=== PATIENT | male | born 1950 | race Caucasian/White ===

== ENCOUNTER → 2017-03-25 10:02 | Outpatient (CLI) | payer MEDICARE, SELFPAY ==
[2017-03-25 10:44] LABS: Basophils # 0.1 K/mm3 (0-0.2); Basophils % 1.3 % (0.1-2.0); Eosinophils # 0.4 K/mm3 (0.0-0.4); Eosinophils % 5.5 % (0.1-12.0); Hematocrit 42.6 % (42.0-52.0); Hemoglobin 14.1 g/dL (14.1-18.0); Lymphocytes # 1.7 K/mm3 (0.7-4.5); Lymphocytes % 26.3 K/mm3 (10-50); Mean Corpuscular HGB Conc 33.2 g/dL (31.8-35.4); Mean Corpuscular Hemoglobin 30.7 pg (27.0-31.2); Mean Corpuscular Volume 92.6 fl (80-94); Monocytes # 0.5 K/mm3 (0.1-1.0); Monocytes % 7.1 % (1.7-9.3); Neutrophils # 3.9 K/mm3 (1.8-7.8); Neutrophils % 59.8 % (37.0-80.0); Platelet Count 165 K/mm3 (142-424); Red Blood Count 4.61 M/mm3 (4.60-6.20); Red Cell Distribution Width 13.3 % (11.5-17.5); White Blood Count 6.5 K/mm3 (4.8-10.8)
[2017-03-25 11:59] LABS: Hemoglobin A1C 6.8 % (0.0-7.0)
[2017-03-25 12:01] LABS: Alanine Aminotransferase 35 U/L (12-78); Albumin Level 3.6 gm/dL (3.4-5.0); Albumin/Globulin Ratio 1.2 (1.1-1.8); Alkaline Phosphatase 75 U/L (46-116); Aspartate Amino Transferase 20 U/L (15-37); Blood Urea Nitrogen 19 mg/dL (7-18); Calcium 9.1 mg/dL (8.5-10.1); Carbon Dioxide 32 mmol/L (21.0-32.0); Chloride 106 mmol/L (98-107); Chol/HDL Ratio 3.4 (1-3.5); Cholesterol 149 mg/dL (140-200); Creatinine,Serum 0.97 mg/dL (0.70-1.30); Estimated Glomerular Filt Rate 77 ml/min (>60); GFR (African American) 93 ML/MIN (>60); Glucose 150 mg/dL (74-106); HDL Cholesterol 44 mg/dL (27-67); LDL Cholesterol 77 mg/dL (0-130); Sodium 140 mmol/L (136-145); Thyroid Stimulating Hormone 2.61 uIU/ml (0.358-3.740); Total Protein,Serum 6.6 gm/dL (6.4-8.2); Triglycerides 142 mg/dL (30-200); VLDL Cholesterol 28 mg/dL (0-40)
[2017-04-01 08:47] LABS: Immunoglobulin E, Total 649 IU/mL (0-100)
== END ==
PROVIDERS: PCP Internal Medicine Adolescent Medicine; Visit Provider Nurse Practitioner Family
DX: I10 Essential (primary) hypertension (principal); Z79.899 Other long term (current) drug therapy; E11.9 Type 2 diabetes mellitus without complications; D64.9 Anemia, unspecified; L20.81 Atopic neurodermatitis
CPT/HCPCS: 36415; 80053; 80061; 82785; 83036; 84443; 85025

== ENCOUNTER → 2017-09-20 10:22 | Outpatient (CLI) | payer MEDICARE, SELFPAY ==
[2017-09-20 10:42] LABS: Basophils # 0.1 K/mm3 (0-0.2); Basophils % 0.9 % (0.1-2.0); Eosinophils # 0.3 K/mm3 (0.0-0.4); Eosinophils % 3.9 % (0.1-12.0); Hematocrit 46.1 % (42.0-52.0); Hemoglobin 14.6 g/dL (14.1-18.0); Lymphocytes # 1.8 K/mm3 (0.7-4.5); Lymphocytes % 27.1 K/mm3 (10-50); Mean Corpuscular HGB Conc 31.7 g/dL (31.8-35.4); Mean Corpuscular Hemoglobin 29.7 pg (27.0-31.2); Mean Corpuscular Volume 93.5 fl (80-94); Mean Platelet Volume 9.1 fl (7.4-10.4); Monocytes # 0.5 K/mm3 (0.1-1.0); Monocytes % 7.6 % (1.7-9.3); Neutrophils # 4.1 K/mm3 (1.8-7.8); Neutrophils % 60.6 % (37.0-80.0); Platelet Count 166 K/mm3 (142-424); Red Blood Count 4.93 M/mm3 (4.60-6.20); Red Cell Distribution Width 13.1 % (11.5-17.5); White Blood Count 6.7 K/mm3 (4.8-10.8)
[2017-09-20 11:02] LABS: Hemoglobin A1C 6.2 % (0.0-7.0)
[2017-09-20 11:31] LABS: Alanine Aminotransferase 35 U/L (12-78); Albumin Level 3.8 gm/dL (3.4-5.0); Albumin/Globulin Ratio 1.2 (1.1-1.8); Alkaline Phosphatase 71 U/L (46-116); Anion Gap 9.9 mEq/L (5-15); Aspartate Amino Transferase 15 U/L (15-37); Bilirubin,Total 1.4 mg/dL (0.2-1.0); Blood Urea Nitrogen 18 mg/dL (7-18); Calcium 9.2 mg/dL (8.5-10.1); Carbon Dioxide 33 mmol/L (21.0-32.0); Chloride 110 mmol/L (98-107); Chol/HDL Ratio 2.6 (1-3.5); Cholesterol 132 mg/dL (140-200); Creatinine,Serum 1.02 mg/dL (0.70-1.30); Estimated Glomerular Filt Rate 73 ml/min (>60); Free Thyroxine Index 2.6 ug/dL (5.93-13.13); GFR (African American) 88 ML/MIN (>60); Globulin 3.2 gm/dl (1.3-3.2); Glucose 132 mg/dL (74-106); HDL Cholesterol 50 mg/dL (27-67); LDL Cholesterol 68 mg/dL (0-130); Potassium 4.9 mmoL/L (3.5-5.1); Sodium 148 mmol/L (136-145); T4 (Thyroxine) 7.5 ug/dl (4.7-13.3); Thyroid Stimulating Hormone 2.43 uIU/ml (0.358-3.740); Triglycerides 71 mg/dL (30-200); Triiodothryronine (T3) Uptake 34 % (31-39); VLDL Cholesterol 14 mg/dL (0-40)
[2017-09-21 19:22] LABS: Vitamin B12 704 pg/mL (232-1245)
== END ==
PROVIDERS: Visit Provider Nurse Practitioner Family
DX: E11.9 Type 2 diabetes mellitus without complications (principal); R63.4 Abnormal weight loss; D64.9 Anemia, unspecified
CPT/HCPCS: 36415; 80053; 80061; 82607; 83036; 84436; 84443; 84479; 85025

== ENCOUNTER 2017-10-25 11:00 | Outpatient (RCR) | payer MEDICARE, SELFPAY | END 2017-11-10 11:28 | disposition home or self-care (01) | LOC: PT 11:00 | PROVIDERS: PCP Internal Medicine Adolescent Medicine; Visit Provider Orthopaedic Surgery Adult Reconstructive Orthopaedic Surgery | DX: M25.552 Pain in left hip (principal) | CPT/HCPCS: 97110; 97163 ==

== ENCOUNTER 2017-10-27 11:00 | Outpatient (RCR) | payer MEDICARE, SELFPAY | END 2017-11-10 11:31 | disposition home or self-care (01) | LOC: OT 11:00 | PROVIDERS: PCP Internal Medicine Adolescent Medicine; Visit Provider Family Medicine Sports Medicine | DX: M25.511 Pain in right shoulder (principal) | CPT/HCPCS: 97110; 97165 ==

== ENCOUNTER → 2017-12-23 08:54 | Outpatient (CLI) | payer MEDICARE, SELFPAY ==
[2017-12-23 10:27] LABS: Anion Gap 10.1 mEq/L (5-15); Blood Urea Nitrogen 17 mg/dL (7-18); Calcium 9.1 mg/dL (8.5-10.1); Carbon Dioxide 33 mmol/L (21.0-32.0); Chloride 107 mmol/L (98-107); Estimated Glomerular Filt Rate 84 ml/min (>60); GFR (African American) 102 ML/MIN (>60); Glucose 121 mg/dL (74-106); Potassium 4.1 mmoL/L (3.5-5.1); Sodium 146 mmol/L (136-145)
== END ==
PROVIDERS: PCP Nurse Practitioner Family; Visit Provider Nurse Practitioner Family
DX: E11.9 Type 2 diabetes mellitus without complications (principal); I10 Essential (primary) hypertension
CPT/HCPCS: 36415; 80048

== ENCOUNTER → 2018-01-11 13:17 | Outpatient (POV) | payer MEDICARE, SELFPAY | PROVIDERS: Visit Provider Dermatology | DX: Z00.00 Encounter for general adult medical examination without abnormal findings (principal) ==

== ENCOUNTER → 2018-04-25 10:12 | Outpatient (CLI) | payer MEDICARE, SELFPAY ==
[2018-04-25 11:06] LABS: Basophils # 0.1 K/mm3 (0-0.2); Basophils % 0.8 % (0.1-2.0); Eosinophils # 0.2 K/mm3 (0.0-0.4); Eosinophils % 3.1 % (0.1-12.0); Hematocrit 42.7 % (42.0-52.0); Lymphocytes # 1.6 K/mm3 (0.7-4.5); Lymphocytes % 26.4 % (10-50); Mean Corpuscular HGB Conc 32.7 g/dL (31.8-35.4); Mean Corpuscular Hemoglobin 31.2 pg (27.0-31.2); Mean Corpuscular Volume 95.2 fl (80-94); Mean Platelet Volume 9.2 fl (7.4-10.4); Monocytes # 0.5 K/mm3 (0.1-1.0); Monocytes % 8.4 % (1.7-9.3); Neutrophils # 3.7 K/mm3 (1.8-7.8); Neutrophils % 61.2 % (37.0-80.0); Platelet Count 157 K/mm3 (142-424); Red Blood Count 4.48 M/mm3 (4.60-6.20); Red Cell Distribution Width 14.2 % (11.5-17.5); White Blood Count 6.1 K/mm3 (4.8-10.8)
[2018-04-25 11:37] LABS: Hemoglobin A1C 6.6 % (0.0-7.0)
[2018-04-25 12:21] LABS: Alanine Aminotransferase 54 U/L (12-78); Albumin Level 3.3 gm/dL (3.4-5.0); Albumin/Globulin Ratio 1.1 (1.1-1.8); Alkaline Phosphatase 79 U/L (46-116); Anion Gap 12.5 mEq/L (5-15); Aspartate Amino Transferase 22 U/L (15-37); Bilirubin,Total 1.7 mg/dL (0.2-1.0); Blood Urea Nitrogen 21 mg/dL (7-18); Calcium 9.1 mg/dL (8.5-10.1); Carbon Dioxide 30 mmol/L (21.0-32.0); Chloride 108 mmol/L (98-107); Chol/HDL Ratio 3.4 (1-3.5); Cholesterol 146 mg/dL (140-200); Creatinine,Serum 1.05 mg/dL (0.70-1.30); Estimated Glomerular Filt Rate 70 ml/min (>60); GFR (African American) 85 ML/MIN (>60); Glucose 122 mg/dL (74-106); HDL Cholesterol 43 mg/dL (27-67); LDL Cholesterol 64 mg/dL (0-130); Potassium 4.5 mmoL/L (3.5-5.1); Sodium 146 mmol/L (136-145); Total Protein,Serum 6.3 gm/dL (6.4-8.2); Triglycerides 193 mg/dL (30-200); VLDL Cholesterol 39 mg/dL (0-40)
== END ==
PROVIDERS: Visit Provider Nurse Practitioner Family
DX: I10 Essential (primary) hypertension (principal); E11.9 Type 2 diabetes mellitus without complications
CPT/HCPCS: 36415; 80053; 80061; 83036; 85025

== ENCOUNTER → 2018-10-24 10:10 | Outpatient (CLI) | payer MEDICARE, SELFPAY ==
[2018-10-24 10:38] LABS: Basophils # 0.1 K/mm3 (0-0.2); Basophils % 1.5 % (0.1-2.0); Eosinophils # 0.4 K/mm3 (0.0-0.4); Eosinophils % 7.7 % (0.1-12.0); Hematocrit 43.2 % (42.0-52.0); Lymphocytes # 1.7 K/mm3 (0.7-4.5); Lymphocytes % 30.8 % (10-50); Mean Corpuscular HGB Conc 32.5 g/dL (31.8-35.4); Mean Corpuscular Hemoglobin 30.8 pg (27.0-31.2); Mean Corpuscular Volume 94.8 fl (80-94); Monocytes # 0.4 K/mm3 (0.1-1.0); Monocytes % 7.6 % (1.7-9.3); Neutrophils # 2.8 K/mm3 (1.8-7.8); Neutrophils % 52.4 % (37.0-80.0); Platelet Count 144 K/mm3 (142-424); Red Blood Count 4.56 M/mm3 (4.60-6.20); Red Cell Distribution Width 13.5 % (11.5-17.5); White Blood Count 5.4 K/mm3 (4.8-10.8)
[2018-10-24 11:04] LABS: Hemoglobin A1C 6.2 % (0.0-7.0)
[2018-10-24 17:52] LABS: Alanine Aminotransferase 33 U/L (12-78); Albumin Level 3.9 gm/dL (3.4-5.0); Albumin/Globulin Ratio 1.4 (1.1-1.8); Alkaline Phosphatase 71 U/L (46-116); Anion Gap 13.1 mEq/L (5-15); Aspartate Amino Transferase 22 U/L (15-37); Bilirubin,Total 2.3 mg/dL (0.2-1.0); Blood Urea Nitrogen 23 mg/dL (7-18); Calcium 9.3 mg/dL (8.5-10.1); Carbon Dioxide 29 mmol/L (21.0-32.0); Chloride 110 mmol/L (98-107); Chol/HDL Ratio 2.9 (1-3.5); Cholesterol 120 mg/dL (140-200); Creatinine,Serum 0.91 mg/dL (0.70-1.30); Estimated Glomerular Filt Rate 83 ml/min (>60); GFR (African American) 100 ML/MIN (>60); Globulin 2.7 gm/dl (1.3-3.2); Glucose 119 mg/dL (74-106); HDL Cholesterol 41 mg/dL (27-67); LDL Cholesterol 59 mg/dL (0-130); Potassium 4.1 mmoL/L (3.5-5.1); Sodium 148 mmol/L (136-145); Total Protein,Serum 6.6 gm/dL (6.4-8.2); Triglycerides 100 mg/dL (30-200); VLDL Cholesterol 20 mg/dL (0-40)
== END ==
PROVIDERS: Visit Provider Nurse Practitioner Family
DX: E11.29 Type 2 diabetes mellitus with other diabetic kidney complication (principal); I10 Essential (primary) hypertension; E78.5 Hyperlipidemia, unspecified; D64.9 Anemia, unspecified; Z79.84 Long term (current) use of oral hypoglycemic drugs
CPT/HCPCS: 36415; 80053; 80061; 83036; 85025

== ENCOUNTER → 2018-10-31 08:00 | Outpatient (CLI) | payer MEDICARE, SELFPAY ==
--- NOTE | 2018-10-31 08:02 | US_ITS ---
PROCEDURE: US ABDOMEN LIMITED CLINICAL INDICATION: HYPERBILIRUBINEMIA COMPARISON: No exams were available for comparison FINDINGS: PANCREAS: Unremarkable. No obvious mass or abnormal fluid collection. No ductal dilatation LIVER: No focal liver lesions demonstrated. Homogeneous echogenicity. No intrahepatic biliary ductal dilatation evident. There is appropriate direction of blood flow within a non dilated portal vein RIGHT KIDNEY: Unremarkable. Normal size and echogenicity. No hydronephrosis GALLBLADDER: No gallstones, gallbladder wall thickening, pericholecystic fluid, or biliary dilatation IMPRESSION: Unremarkable limited abdominal ultrasound as detailed above disc Dictated by: Sanjay French MD 10/31/2018 17:27 Signed by: <Electronically signed by Sanjay French MD in [place]> 10/31/2018 17:27
== END ==
PROVIDERS: PCP Nurse Practitioner Family; Visit Provider Nurse Practitioner Family
DX: E80.6 Other disorders of bilirubin metabolism (principal)
CPT/HCPCS: 76705

== ENCOUNTER → 2019-01-10 12:56 | Outpatient (POV) | payer MEDICARE, SELFPAY | PROVIDERS: Visit Provider Dermatology | DX: Z00.00 Encounter for general adult medical examination without abnormal findings (principal) ==

== ENCOUNTER → 2019-04-10 09:33 | Outpatient (CLI) | payer MEDICARE, SELFPAY ==
[2019-04-10 10:05] LABS: Basophils # 0.1 K/mm3 (0-0.2); Basophils % 1.2 % (0.1-2.0); Eosinophils # 0.4 K/mm3 (0.0-0.4); Eosinophils % 8.3 % (0.1-12.0); Hematocrit 40.9 % (42.0-52.0); Hemoglobin 13.6 g/dL (14.1-18.0); Lymphocytes # 1.5 K/mm3 (0.7-4.5); Lymphocytes % 29.1 % (10-50); Mean Corpuscular HGB Conc 33.3 g/dL (31.8-35.4); Mean Corpuscular Hemoglobin 31.6 pg (27.0-31.2); Mean Corpuscular Volume 94.8 fl (80-94); Mean Platelet Volume 10.5 fl (7.4-10.4); Monocytes # 0.4 K/mm3 (0.1-1.0); Monocytes % 7.7 % (1.7-9.3); Neutrophils # 2.7 K/mm3 (1.8-7.8); Neutrophils % 53.6 % (37.0-80.0); Platelet Count 146 K/mm3 (142-424); Red Blood Count 4.31 M/mm3 (4.60-6.20); Red Cell Distribution Width 12.9 % (11.5-17.5); White Blood Count 5.1 K/mm3 (4.8-10.8)
[2019-04-10 10:45] LABS: Alanine Aminotransferase 39 U/L (12-78); Albumin Level 3.7 gm/dL (3.4-5.0); Albumin/Globulin Ratio 1.5 (1.1-1.8); Alkaline Phosphatase 71 U/L (46-116); Anion Gap 11.5 mEq/L (5-15); Aspartate Amino Transferase 19 U/L (15-37); Bilirubin,Total 1.5 mg/dL (0.2-1.0); Blood Urea Nitrogen 22 mg/dL (7-18); Calcium 9.1 mg/dL (8.5-10.1); Carbon Dioxide 30 mmol/L (21.0-32.0); Chloride 110 mmol/L (98-107); Cholesterol 128 mg/dL (140-200); Creatinine,Serum 1.03 mg/dL (0.70-1.30); Estimated Glomerular Filt Rate 71 ml/min (>60); GFR (African American) 86 ML/MIN (>60); Globulin 2.5 gm/dl (1.3-3.2); Glucose 117 mg/dL (74-106); HDL Cholesterol 42 mg/dL (27-67); LDL Cholesterol 67 mg/dL (0-130); Potassium 4.5 mmoL/L (3.5-5.1); Sodium 147 mmol/L (136-145); Total Protein,Serum 6.2 gm/dL (6.4-8.2); Triglycerides 96 mg/dL (30-200); VLDL Cholesterol 19 mg/dL (0-40)
[2019-04-10 10:51] LABS: Hemoglobin A1C 6.1 % (0.0-7.0)
== END ==
PROVIDERS: Visit Provider Nurse Practitioner Family
DX: E78.5 Hyperlipidemia, unspecified (principal); E11.29 Type 2 diabetes mellitus with other diabetic kidney complication; I10 Essential (primary) hypertension; Z79.84 Long term (current) use of oral hypoglycemic drugs
CPT/HCPCS: 36415; 80053; 80061; 83036; 85025

== ENCOUNTER → 2019-10-12 09:06 | Outpatient (CLI) | payer MEDICARE, SELFPAY ==
[2019-10-12 09:22] LABS: Basophils # 0.1 K/mm3 (0-0.2); Basophils % 0.8 % (0.1-2.0); Eosinophils # 0.3 K/mm3 (0.0-0.4); Eosinophils % 3.5 % (0.1-12.0); Hematocrit 41.4 % (42.0-52.0); Hemoglobin 14.1 g/dL (14.1-18.0); Lymphocytes # 1.4 K/mm3 (0.7-4.5); Lymphocytes % 17.3 % (10-50); Mean Corpuscular Hemoglobin 32.2 pg (27.0-31.2); Mean Corpuscular Volume 94.7 fl (80-94); Mean Platelet Volume 10.7 fl (7.4-10.4); Monocytes # 0.7 K/mm3 (0.1-1.0); Monocytes % 8.3 % (1.7-9.3); Neutrophils # 5.8 K/mm3 (1.8-7.8); Platelet Count 133 K/mm3 (142-424); Red Blood Count 4.37 M/mm3 (4.60-6.20); Red Cell Distribution Width 13.5 % (11.5-17.5); White Blood Count 8.3 K/mm3 (4.8-10.8)
[2019-10-12 09:50] LABS: Alanine Aminotransferase 27 U/L (12-78); Albumin/Globulin Ratio 1.7 (1.1-1.8); Alkaline Phosphatase 74 U/L (38-126); Anion Gap 12.3 mEq/L (5-15); Aspartate Amino Transferase 29 U/L (17-59); Bilirubin,Total 1.8 mg/dl (0.2-1.3); Blood Urea Nitrogen 18 mg/dl (9-20); Calcium 9.4 mg/dl (8.4-10.2); Carbon Dioxide 32 mmol/L (22.0-30.0); Chloride 103 mmol/L (98-107); Chol/HDL Ratio 2.7 (1-3.5); Cholesterol 129 mg/dl (140-200); Estimated Glomerular Filt Rate 74 ml/min (>60); GFR (African American) 89 ML/MIN (>60); Globulin 2.4 g/dL (1.3-3.2); Glucose 118 mg/dl (74-100); HDL Cholesterol 48 mg/dl (40-60); Potassium 4.3 mmoL/L (3.5-5.1); Sodium 143 mmol/L (136-145); Total Protein,Serum 6.4 g/dl (6.3-8.2); Triglycerides 142 mg/dl (30-150); VLDL Cholesterol 28 mg/dL (0-40)
[2019-10-12 10:01] LABS: Direct LDL Cholesterol 63.67 mg/dL (100-129)
[2019-10-12 10:24] LABS: Ferritin 36.4 ng/ml (17.9-464)
[2019-10-12 10:56] LABS: Hemoglobin A1C 6.1 % (4.0-6.0)
[2019-10-13 09:11] LABS: Vitamin B12 327 pg/mL (232-1245)
== END ==
PROVIDERS: Visit Provider Nurse Practitioner Family
DX: D64.9 Anemia, unspecified (principal); I70.90 Unspecified atherosclerosis; E78.5 Hyperlipidemia, unspecified; E11.29 Type 2 diabetes mellitus with other diabetic kidney complication; Z79.84 Long term (current) use of oral hypoglycemic drugs
CPT/HCPCS: 36415; 80053; 80061; 82607; 82728; 83036; 85025

== ENCOUNTER → 2019-10-30 08:23 | Outpatient (CLI) | payer MEDICARE, SELFPAY ==
--- NOTE | 2019-10-30 08:26 | CA_ITS ---
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: [place] Laterality: Bilateral Study Quality: Good Indications: LISET Doppler Spectral Velocity Analysis dICA (R) 163.40/32.30 cm/s dICA (L) 78.30/27.50 cm/s Aidan (R) 179.80/42.40 cm/s Aidan (L) 83.20/29.10 cm/s pICA (R) 199.50/59.20 cm/s pICA (L) 77.30/25.90 cm/s dCCA (R) 82.10/18.60 cm/s dCCA (L) 83.70/22.70 cm/s pCCA (R) 92.50/20.90 cm/s pCCA (L) 100.00/26.30 cm/s Vert (R) 76.20/17.60 cm/s Vert (L) 19.20/3.30 cm/s ICA/CCA 2.40 ICA/CCA 1.00 Findings Duplex evaluation demonstrates stenosis of the right proximal internal carotid artery in the range of 50-69% with PSV =140 cm/sec, EDV <100 cm/sec, and IC/CC Ratio <4.0.Duplex evaluation demonstrates stenosis of the left proximal internal carotid artery in the range of 20-49% with PSV <140 cm/sec, EDV <100 cm/sec, and IC/CC Ratio <4.0.Antegrade flow seen bilateral vertebral arteries. No significant change from exam of 09/25/14 Conclusion Duplex evaluation demonstrates stenosis of the right proximal internal carotid artery in the range of 50-69% with PSV =140 cm/sec, EDV <100 cm/sec, and IC/CC Ratio <4.0.Duplex evaluation demonstrates stenosis of the left proximal internal carotid artery in the range of 20-49% with PSV <140 cm/sec, EDV <100 cm/sec, and IC/CC Ratio <4.0.Antegrade flow seen bilateral vertebral arteries. No significant change from exam of 09/25/14 Electronically signed by : Sanjay French MD 10/30/2019 16:34:09
== END ==
PROVIDERS: PCP Nurse Practitioner Family; Visit Provider Nurse Practitioner Family
DX: I65.23 Occlusion and stenosis of bilateral carotid arteries (principal)
CPT/HCPCS: 93880

== ENCOUNTER → 2020-01-16 09:05 | Outpatient (POV) | payer MEDICARE, SELFPAY | PROVIDERS: Visit Provider Dermatology | DX: Z00.00 Encounter for general adult medical examination without abnormal findings (principal) ==

== ENCOUNTER → 2020-04-15 08:46 | Outpatient (CLI) | payer MEDICARE, SELFPAY ==
[2020-04-15 09:14] LABS: Basophils # 0.1 K/mm3 (0-0.2); Basophils % 1.4 % (0.1-2.0); Eosinophils # 0.3 K/mm3 (0.0-0.4); Eosinophils % 5.4 % (0.1-12.0); Hemoglobin 14.6 g/dL (14.1-18.0); Lymphocytes # 1.9 K/mm3 (0.7-4.5); Lymphocytes % 31.5 % (10-50); Mean Corpuscular HGB Conc 32.5 g/dL (31.8-35.4); Mean Corpuscular Hemoglobin 31.2 pg (27.0-31.2); Mean Platelet Volume 10.7 fl (7.4-10.4); Monocytes # 0.5 K/mm3 (0.1-1.0); Monocytes % 8.6 % (1.7-9.3); Neutrophils # 3.1 K/mm3 (1.8-7.8); Neutrophils % 53.1 % (37.0-80.0); Platelet Count 170 K/mm3 (142-424); Red Blood Count 4.69 M/mm3 (4.60-6.20); Red Cell Distribution Width 13.3 % (11.5-17.5); White Blood Count 5.9 K/mm3 (4.8-10.8)
[2020-04-15 09:34] LABS: Chloride 107 mmol/L (98-107); Potassium 4.4 mmoL/L (3.5-5.1); Sodium 144 mmol/L (136-145)
[2020-04-15 09:36] LABS: Blood Urea Nitrogen 22 mg/dl (9-20); Estimated Glomerular Filt Rate 66 ml/min (>60); GFR (African American) 80 ML/MIN (>60)
[2020-04-15 09:37] LABS: Alanine Aminotransferase 34 U/L (12-78); Albumin Level 4.2 g/dl (3.5-5.0); Albumin/Globulin Ratio 1.5 (1.1-1.8); Alkaline Phosphatase 72 U/L (38-126); Anion Gap 8.4 mEq/L (5-15); Aspartate Amino Transferase 32 U/L (17-59); Bilirubin,Total 1.9 mg/dl (0.2-1.3); Carbon Dioxide 33 mmol/L (22.0-30.0); Cholesterol 144 mg/dl (140-200); Globulin 2.8 g/dL (1.3-3.2); Triglycerides 133 mg/dl (30-150); VLDL Cholesterol 27 mg/dL (0-40)
[2020-04-15 09:38] LABS: Calcium 9.6 mg/dl (8.4-10.2); Glucose 129 mg/dl (74-100); HDL Cholesterol 46 mg/dl (40-60)
[2020-04-15 09:48] LABS: Direct LDL Cholesterol 74.13 mg/dL (100-129)
== END ==
PROVIDERS: Visit Provider Nurse Practitioner Family
DX: I10 Essential (primary) hypertension (principal); E78.5 Hyperlipidemia, unspecified; E11.29 Type 2 diabetes mellitus with other diabetic kidney complication; D64.9 Anemia, unspecified; K21.9 Gastro-esophageal reflux disease without esophagitis; Z79.84 Long term (current) use of oral hypoglycemic drugs
CPT/HCPCS: 36415; 80053; 80061; 83036; 85025

== ENCOUNTER → 2020-06-25 13:16 | Outpatient (CLI) | payer MEDICARE, SELFPAY ==
[2020-06-25 16:13] LABS: Coronavirus 19 IgG Antibody Positive (Negative); Coronavirus 19 IgM Antibody Negative (Negative)
== END ==
PROVIDERS: Visit Provider Surgery
DX: Z01.812 Encounter for preprocedural laboratory examination (principal); Z20.822 Contact with and (suspected) exposure to COVID-19; Z12.11 Encounter for screening for malignant neoplasm of colon
CPT/HCPCS: 36415; 86328

== ENCOUNTER 2020-06-27 07:20 | Day surgery (SDC) | payer MEDICARE, SELFPAY ==
[2020-06-20 15:06] VITALS: BMI 26.9
[2020-06-27 07:44] VITALS: BP 143/75; PULSE 67; RESP 18; TEMP 36.3; O2SAT 97
[2020-06-27 08:39] VITALS: O2SAT 98
--- NOTE | 2020-06-27 08:49 | P.PN_ITS ---
[facility] Anesthesia Checklist - Patient Identification Patient Identification: Arm Band - Structural Data Admitted From: Home Planned Operative Procedure/s: colonoscopy Consent for Planned Operative Procedure(s) Verified: Yes Verified Documents: Surgical Consent, History and Physical - NPO Status Verified Time NPO: 00:00 - Additional verifications Anesthesia Reactions: No - Airway Assessment C-Spine Mobility Assessed: Yes (mp2) TMJ Mobility Assessed: Yes Dentition: Dentures-good fit - Neurological Assessment Level of Consciousness: Awake, Alert - Anesthesia Plan Anesthesia Risk discussed: Yes Anesthesia Plan: Verified ASA Class: III Anesthesia Type: MAC [facility] History I have reviewed the patient's past medical history: Yes Medical History: Reports:: Cancer (skin), Gastroesophageal Reflux Disease(GERD), Hyperlipidemia, Hypertension Denies:: Diabetes Mellitus Type 1, Diabetes Mellitus Type 2, Internal Pacemaker, Lung Disease, MRSA, Seizures *Have you ever received a pneumonia vaccine?: Yes *Have you received a flu vaccine this season?: Yes Other Medical History: Reports: Other (carotid stenosis) Anesthesia experience/problems:: nac Laterality Cases: Right: Carpal Tunnel Release Other Surgeries: Yes: Colonoscopy, Other. No: Pacemaker Amputation: No Fractures: No - *Social History Smoking Status: Never smoker Alcohol Intake: never Alcohol Intake Frequency:: a few times a week Substance Use Type: denies use *Occupational Status:: retired Housing: house *Travel in the last 8 weeks: None Family Hx:: No significant family history
[2020-06-27 09:12] VITALS: BP 88/54; PULSE 67; RESP 18; TEMP 36.1; O2SAT 91
--- NOTE | 2020-06-27 09:12 | HMH.SCOPE ---
- Procedure: Date: 06/27/20 Patient Date of :: 1950 Procedure Performed:: Colonoscopy with polypectomy by means other than snare Indications:: History of colon polyps Performing Provider:: Heriberto Floyd MD Referring Provider:: . Sedation:: Monitored anesthesia care Procedure:: After informed consent was obtained the patient was taken to the endoscopy suite. Sedation ensued after the patient was transferred to the left lateral decubitus position. Pulse, blood pressure, and oxygen saturation were monitored throughout the procedure. Digital rectal exam revealed no significant abnormality. The colonoscope was placed in position. The entire colon was evaluated. The colonoscope was carefully removed and the patient was transferred to recovery in stable condition. Please see findings and specimens below for detail. Findings:: Bowel preparation relatively fair Moderate spasticity Minimal hemorrhoidal tags Lobulated sessile 8 mm proximal right colon polyp (excised in a piecemeal fashion utilizing cold biopsy forceps and then marked via SPOT) Specimens:: Lobulated sessile 8 mm proximal right colon polyp (cold biopsy forceps and tattoo) Recommendations:: Follow-up pathology Timing of repeat colonoscopy is pending pathology but will likely be around 1 year secondary to complex lobulated right colon polyp. Complications:: No immediate Estimated blood obtained (mL): 1
[2020-06-27 09:20] VITALS: BP 98/60; PULSE 65; RESP 18; O2SAT 96
[2020-06-27 09:33] VITALS: BP 135/83; PULSE 63; RESP 18; O2SAT 96
[2020-06-27 09:45] VITALS: BP 156/74; PULSE 62; RESP 18; O2SAT 97
== END 2020-06-27 10:00 | disposition home or self-care (01) ==
LOC: OUTP 07:23
PROVIDERS: PCP Nurse Practitioner Family; Visit Provider Surgery
PROC: 0DJD8ZZ Inspection of Lower Intestinal Tract, Via Natural or Artificial Opening Endoscopic (ICD-10-PCS; principal; 2020-06-27 08:30)
DX: Z12.11 Encounter for screening for malignant neoplasm of colon (principal); K58.9 Irritable bowel syndrome, unspecified; K64.9 Unspecified hemorrhoids; K63.5 Polyp of colon; Z86.010 Personal history of colon polyps; K21.9 Gastro-esophageal reflux disease without esophagitis; E78.5 Hyperlipidemia, unspecified; I10 Essential (primary) hypertension; Z87.39 Personal history of other diseases of the musculoskeletal system and connective tissue; Z85.828 Personal history of other malignant neoplasm of skin
CPT/HCPCS: 45380; 88305

== ENCOUNTER → 2020-10-14 10:05 | Outpatient (CLI) | payer MEDICARE, SELFPAY ==
[2020-10-14 10:36] LABS: Basophils # 0.1 K/mm3 (0-0.2); Basophils % 1.5 % (0.1-2.0); Eosinophils # 0.3 K/mm3 (0.0-0.4); Hematocrit 45.1 % (42.0-52.0); Hemoglobin 14.9 g/dL (14.1-18.0); Lymphocytes # 2.3 K/mm3 (0.7-4.5); Lymphocytes % 37.1 % (10-50); Mean Corpuscular HGB Conc 33.2 g/dL (31.8-35.4); Mean Corpuscular Volume 93.4 fl (80-94); Mean Platelet Volume 10.3 fl (7.4-10.4); Monocytes # 0.5 K/mm3 (0.1-1.0); Neutrophils # 3.1 K/mm3 (1.8-7.8); Neutrophils % 49.3 % (37.0-80.0); Platelet Count 154 K/mm3 (142-424); Red Blood Count 4.82 M/mm3 (4.60-6.20); Red Cell Distribution Width 13.9 % (11.5-17.5); White Blood Count 6.2 K/mm3 (4.8-10.8)
[2020-10-14 10:41] LABS: Creatinine,Urine Random 288 mg/dL (Not Estab.)
[2020-10-14 10:45] LABS: Microalbumin/Creatinine Ratio 7.7
[2020-10-14 10:46] LABS: Hemoglobin A1C 6.3 % (4.0-6.0)
[2020-10-14 11:13] LABS: Alanine Aminotransferase 40 U/L (12-78); Albumin Level 4.4 g/dl (3.5-5.0); Albumin/Globulin Ratio 1.7 (1.1-1.8); Alkaline Phosphatase 72 U/L (38-126); Anion Gap 13.3 mEq/L (5-15); Aspartate Amino Transferase 35 U/L (17-59); Bilirubin,Total 2.2 mg/dl (0.2-1.3); Blood Urea Nitrogen 24 mg/dl (9-20); Calcium 9.1 mg/dl (8.4-10.2); Carbon Dioxide 32 mmol/L (22.0-30.0); Chloride 105 mmol/L (98-107); Cholesterol 158 mg/dl (140-200); Estimated Glomerular Filt Rate 74 ml/min (>60); GFR (African American) 89 ML/MIN (>60); Globulin 2.6 g/dL (1.3-3.2); Glucose 127 mg/dl (74-100); HDL Cholesterol 40 mg/dl (40-60); Potassium 4.3 mmoL/L (3.5-5.1); Sodium 146 mmol/L (136-145); Triglycerides 137 mg/dl (30-150); VLDL Cholesterol 27 mg/dL (0-40)
[2020-10-14 11:24] LABS: Direct LDL Cholesterol 83.68 mg/dL (100-129)
== END ==
PROVIDERS: Visit Provider Nurse Practitioner Family
DX: E11.29 Type 2 diabetes mellitus with other diabetic kidney complication (principal); E78.5 Hyperlipidemia, unspecified; I10 Essential (primary) hypertension; D64.9 Anemia, unspecified
CPT/HCPCS: 36415; 80053; 80061; 82043; 82570; 83036; 85025

== ENCOUNTER → 2020-11-12 10:42 | Outpatient (POV) | payer MEDICARE, SELFPAY | PROVIDERS: Visit Provider Otolaryngology | DX: Z00.00 Encounter for general adult medical examination without abnormal findings (principal) ==

== ENCOUNTER → 2021-02-04 12:58 | Outpatient (POV) | payer MEDICARE, SELFPAY | PROVIDERS: Visit Provider Dermatology | DX: Z00.00 Encounter for general adult medical examination without abnormal findings (principal) ==

== ENCOUNTER → 2021-07-12 10:01 | Outpatient (CLI) | payer MEDICARE, SELFPAY | PROVIDERS: Visit Provider Surgery | DX: Z01.812 Encounter for preprocedural laboratory examination (principal); Z11.52 Encounter for screening for COVID-19; Z12.11 Encounter for screening for malignant neoplasm of colon | CPT/HCPCS: C9803; U0003; U0005 ==

== ENCOUNTER 2021-07-15 08:34 | Day surgery (SDC) | payer MEDICARE, SELFPAY ==
[2021-07-15 09:02] VITALS: BP 155/83; PULSE 58; RESP 16; TEMP 36.4; O2SAT 98
[2021-07-15 09:12] VITALS: BMI 26.9
[2021-07-15 09:20] LABS: POC Glucose,Bedside 114 (70-110)
--- NOTE | 2021-07-15 09:22 | HMH.SCOPE ---
- Procedure: Date: 07/15/21 Patient Date of :: 1950 Procedure Performed:: Colonoscopy Indications:: History of colon polyps Colonoscopy in June 2020 was notable for 8 mm proximal right colon adenoma that was excised in a piecemeal fashion and marked via SPOT tattoo. Performing Provider:: Heriberto Floyd MD Referring Provider:: . Sedation:: Monitored anesthesia care Procedure:: After informed consent was obtained the patient was taken to the endoscopy suite. Sedation ensued after the patient was transferred to the left lateral decubitus position. Pulse, blood pressure, and oxygen saturation were monitored throughout the procedure. Digital rectal exam revealed no significant abnormality. The colonoscope was placed in position. The entire colon was evaluated. The colonoscope was carefully removed and the patient was transferred to recovery in stable condition. Please see findings and specimens below for detail. Findings:: Mild hemorrhoidal cushions Bowel preparation fair to moderate Elongated tortuous colon Significant lack of relaxation Region surrounding right colon tattoo site appeared normal Specimens:: None Recommendations:: Repeat colonoscopy in 3-5 years Complications:: No immediate Estimated blood obtained (mL): 0
[2021-07-15 09:27] VITALS: O2SAT 98
--- NOTE | 2021-07-15 09:39 | HMH.ANESCL ---
[facility] Anesthesia Checklist - Patient Identification Patient Identification: Arm Band, Verbal (Name & ) - Structural Data Admitted From: Home Planned Operative Procedure/s: Colonoscopy Consent for Planned Operative Procedure(s) Verified: Yes Verified Documents: Surgical Consent - NPO Status Verified Time NPO: 04:30 - Additional verifications Anesthesia Reactions: No - Airway Assessment C-Spine Mobility Assessed: Yes TMJ Mobility Assessed: Yes Dentition: Good Dentition - Neurological Assessment Level of Consciousness: Awake, Alert, Appropriate - Anesthesia Plan Anesthesia Risk discussed: Yes ASA Class: II Anesthesia Type: MAC [facility] History I have reviewed the patient's past medical history: Yes Medical History: Reports:: Cancer, Diabetes Mellitus Type 2, Gastroesophageal Reflux Disease(GERD), Hyperlipidemia, Hypertension Denies:: Diabetes Mellitus Type 1, Internal Pacemaker, Lung Disease, MRSA, Seizures *Have you ever received a pneumonia vaccine?: Yes *Have you received a flu vaccine this season?: Yes Other Medical History: Reports: Other Anesthesia experience/problems:: none Laterality Cases: Right: Carpal Tunnel Release Other Surgeries: Yes: Cardiac Catheterization, Colonoscopy, Other. No: Pacemaker Amputation: No Fractures: No - *Social History Last grade of school completed: High school graduate Smoking Status: Never smoker Alcohol Intake: never Alcohol Intake Frequency:: a few times a week Substance Use Type: denies use *Occupational Status:: retired Housing: house *Travel in the last 8 weeks: None Family Hx:: Hyperlipidemia, Hypertension
[2021-07-15 10:08] VITALS: BP 75/43; PULSE 59; RESP 18; TEMP 36.1; O2SAT 95
[2021-07-15 10:18] VITALS: BP 91/63; PULSE 57; RESP 18; O2SAT 96
[2021-07-15 10:28] VITALS: BP 152/79; PULSE 56; RESP 18; O2SAT 98
[2021-07-15 10:38] VITALS: BP 149/88; PULSE 51; RESP 18; O2SAT 98
== END 2021-07-15 10:40 | disposition home or self-care (01) ==
LOC: OUTP 08:36
PROVIDERS: PCP Nurse Practitioner Family; Visit Provider Surgery
PROC: 0DJD8ZZ Inspection of Lower Intestinal Tract, Via Natural or Artificial Opening Endoscopic (ICD-10-PCS; CPT 45378; principal; 2021-07-15 09:30)
DX: Z12.11 Encounter for screening for malignant neoplasm of colon (principal); K64.9 Unspecified hemorrhoids; K56.2 Volvulus; K58.9 Irritable bowel syndrome, unspecified; Z86.010 Personal history of colon polyps; E11.9 Type 2 diabetes mellitus without complications; K21.9 Gastro-esophageal reflux disease without esophagitis; E78.5 Hyperlipidemia, unspecified; I10 Essential (primary) hypertension; Z85.9 Personal history of malignant neoplasm, unspecified; Z82.49 Family history of ischemic heart disease and other diseases of the circulatory system; Z83.438 Family history of other disorder of lipoprotein metabolism and other lipidemia
CPT/HCPCS: G0105; 82962

== ENCOUNTER → 2022-02-03 08:58 | Outpatient (POV) | payer MEDICARE, SELFPAY | PROVIDERS: Visit Provider Dermatology | DX: Z00.00 Encounter for general adult medical examination without abnormal findings (principal) ==

== ENCOUNTER → 2023-02-16 08:51 | Outpatient (POV) | payer MEDICARE, SELFPAY | PROVIDERS: PCP Nurse Practitioner Family; Visit Provider Dermatology | DX: Z00.00 Encounter for general adult medical examination without abnormal findings (principal) ==

== ENCOUNTER 2023-03-26 10:31 | Outpatient (CLI) | payer MEDICARE, SELFPAY ==
--- NOTE | 2023-03-26 10:38 | US_ITS ---
FINAL REPORT TECHNIQUE: Ultrasound images of the testicles were obtained bilaterally. Color Doppler images were obtained. CLINICAL HISTORY: TESTICULAR PAIN COMPARISON: None FINDINGS: Right testicle measures 4 cm with normal blood flow. Left testicle measures 3.8 cm with normal blood flow. There is a cystic mass in the right epididymal head measuring 11 mm. There is a cystic mass in the left epididymal head measuring 8 mm. These likely represent epididymal cysts versus spermatoceles. IMPRESSION: Bilateral epididymal cysts versus spermatoceles. Reviewed, Interpreted and Dictated by Deniz Smiley III, MD Transcribed by Leatha George Authenticated and [facility]
== END 2023-03-26 23:59 ==
LOC: RAD 10:33
PROVIDERS: PCP Nurse Practitioner Family; Visit Provider Nurse Practitioner Family
DX: N50.3 Cyst of epididymis (principal)
CPT/HCPCS: 76870

== ENCOUNTER 2023-04-19 09:39 | Outpatient (CLI) | payer MEDICARE, SELFPAY ==
[2023-04-19 09:41] LABS: Microscopic, Urine URINE MICROSCOPIC (MICROSCOPIC)
[2023-04-19 10:37] LABS: Appearance,Urine CLEAR (Clear); Blood, Urine Negative (Negative); Color,Urine YELLOW (Yellow); Glucose,Urine (UA) Negative (Negative); Ketones,Urine TRACE (Negative); Leukocyte Esterase,Urine Negative (Negative); Nitrate,Urine Negative (Negative); Protein,Urine TRACE (Negative); Specific Gravity, Urine >= 1.030 (1.005-1.030)
[2023-04-19 11:00] LABS: Bilirubin,Urine 2+ (Negative)
[2023-04-19 11:15] LABS: Bacteria,Urine 1+ /lpf; WBC,Urine Occasional #/hpf (0-3)
[2023-04-19 11:16] LABS: Mucus,Urine Trace /lpf
== END 2023-04-19 23:59 ==
LOC: LAB.DROPOF 09:40
PROVIDERS: PCP Urology; Visit Provider Urology
DX: R32 Unspecified urinary incontinence (principal); N39.0 Urinary tract infection, site not specified
CPT/HCPCS: 81001

== ENCOUNTER 2023-09-20 08:59 | Outpatient (CLI) | payer MEDICARE, SELFPAY ==
--- NOTE | 2023-09-20 09:08 | XR_ITS ---
FINAL REPORT CLINICAL HISTORY: PAIN IN LEFT HIP with movement FINDINGS: An AP view of the pelvis and a frog leg views of the left hip were obtained. There is no prior exam for comparison. There is no acute fracture or dislocation. There are advanced degenerative changes of the hips bilaterally, left greater than right.. Remaining osseous pelvis is within normal limits. Soft tissues are within normal limits. IMPRESSION: No acute osseous abnormality of the left hip. If pain persists, consider MR. Reviewed, Interpreted and Dictated by Lorin Triplett MD Transcribed by Grace Kelly Authenticated and [facility]
== END 2023-09-20 23:59 | disposition home or self-care (01) ==
LOC: RAD 09:00
PROVIDERS: PCP Internal Medicine Adolescent Medicine; Visit Provider Nurse Practitioner Family
DX: M25.552 Pain in left hip (principal)
CPT/HCPCS: 73502

== ENCOUNTER 2023-09-21 09:44 | Outpatient (CLI) | payer MEDICARE, SELFPAY ==
--- NOTE | 2023-09-21 09:53 | CA_ITS ---
FINAL REPORT TECHNIQUE: Dietrich scale, color and spectral doppler images of the bilateral carotid arteries were obtained. CLINICAL HISTORY: LISET,DIZZINESS,HTN COMPARISON: None FINDINGS: Peak systolic velocity in the right internal carotid artery is 191 cm/sec. The internal carotid to common carotid artery ratio is 2.88. There is no significant carotid artery stenosis and very mild plaque formation in the proximal ICA. The right vertebral artery is normal in direction. Peak systolic velocity in the left internal carotid artery is 94 cm/sec. The internal carotid to common carotid artery ratio is 1.43. There is no significant carotid artery stenosis and minimal plaque formation in the distal carotid and proximal ICA. The left vertebral artery is normal in direction. IMPRESSION: 50-69% carotid artery stenosis on the right and less than 60% on the left. Reviewed, Interpreted and Dictated by Lorin Triplett MD Transcribed by Leatha George Authenticated and . [facility]
== END 2023-09-21 23:59 | disposition home or self-care (01) ==
LOC: RT 09:45
PROVIDERS: PCP Internal Medicine Adolescent Medicine; Visit Provider Nurse Practitioner Family
DX: I65.23 Occlusion and stenosis of bilateral carotid arteries (principal)
CPT/HCPCS: 93880

== ENCOUNTER 2023-09-21 11:29 | Outpatient (POV) | payer MEDICARE, SELFPAY | END 2023-09-21 23:59 | disposition home or self-care (01) | LOC: SC 11:29 | PROVIDERS: PCP Internal Medicine Adolescent Medicine; Visit Provider Dermatology | DX: Z00.00 Encounter for general adult medical examination without abnormal findings (principal) ==

== ENCOUNTER 2023-09-27 09:15 | Outpatient (CLI) | payer MEDICARE, SELFPAY ==
[2023-09-27 09:40] LABS: Basophils # 0.1 K/mm3 (0-0.2); Basophils % 1.5 % (0.1-2.0); Eosinophils # 0.3 K/mm3 (0.0-0.4); Eosinophils % 5.8 % (0.1-12.0); Hematocrit 43.2 % (42.0-52.0); Hemoglobin 14.2 g/dL (14.1-18.0); Lymphocytes # 1.9 K/mm3 (0.7-4.5); Lymphocytes % 32.5 % (10-50); Mean Corpuscular HGB Conc 32.8 g/dL (31.8-35.4); Mean Corpuscular Hemoglobin 32.5 pg (27.0-31.2); Mean Corpuscular Volume 99.1 fl (80-94); Mean Platelet Volume 11.1 fl (7.4-10.4); Monocytes # 0.4 K/mm3 (0.1-1.0); Monocytes % 7.6 % (1.7-9.3); Neutrophils % 52.6 % (37.0-80.0); Platelet Count 126 K/mm3 (142-424); Red Blood Count 4.36 M/mm3 (4.60-6.20); Red Cell Distribution Width 13.6 % (11.5-17.5); White Blood Count 5.7 K/mm3 (4.8-10.8)
[2023-09-29 09:22] LABS: Peripheral Smear Review Scanned Result
== END 2023-09-27 23:59 | disposition home or self-care (01) ==
LOC: LAB 09:18
PROVIDERS: PCP Internal Medicine Adolescent Medicine; Visit Provider Internal Medicine Adolescent Medicine
DX: D69.6 Thrombocytopenia, unspecified (principal)
CPT/HCPCS: 36415; 85025

== ENCOUNTER 2023-11-16 09:08 | Outpatient (CLI) | payer MEDICARE, SELFPAY ==
[2023-11-16 09:35] LABS: Basophils # 0.1 K/mm3 (0-0.2); Basophils % 1.3 % (0.1-2.0); Eosinophils # 0.2 K/mm3 (0.0-0.4); Eosinophils % 2.9 % (0.1-12.0); Hematocrit 45.9 % (42.0-52.0); Hemoglobin 14.7 g/dL (14.1-18.0); Lymphocytes # 1.8 K/mm3 (0.7-4.5); Lymphocytes % 31.9 % (10-50); Mean Corpuscular HGB Conc 32.1 g/dL (31.8-35.4); Mean Corpuscular Hemoglobin 32.1 pg (27.0-31.2); Mean Corpuscular Volume 99.8 fl (80-94); Mean Platelet Volume 10.7 fl (7.4-10.4); Monocytes # 0.5 K/mm3 (0.1-1.0); Monocytes % 8.7 % (1.7-9.3); Neutrophils # 3.1 K/mm3 (1.8-7.8); Neutrophils % 55.1 % (37.0-80.0); Platelet Count 149 K/mm3 (142-424); Red Cell Distribution Width 13.7 % (11.5-17.5); White Blood Count 5.7 K/mm3 (4.8-10.8)
[2023-11-16 10:02] LABS: Albumin Level 3.9 g/dl (3.5-5.0); Chloride 108 mmol/L (98-107); Potassium 4.3 mmoL/L (3.5-5.1); Sodium 143 mmol/L (136-145)
[2023-11-16 10:05] LABS: Alanine Aminotransferase 66 U/L (12-78); Albumin/Globulin Ratio 1.6 (1.1-1.8); Alkaline Phosphatase 72 U/L (38-126); Anion Gap 6.3 mEq/L (5-15); Aspartate Amino Transferase 52 U/L (17-59); Bilirubin,Total 2.4 mg/dl (0.2-1.3); Blood Urea Nitrogen 27 mg/dl (9-20); Carbon Dioxide 33 mmol/L (22.0-30.0); Estimated Glomerular Filt Rate 73 ml/min (>60); GFR (African American) 88 ML/MIN (>60); Globulin 2.5 g/dL (1.3-3.2); Glucose 137 mg/dl (74-100); Total Protein,Serum 6.4 g/dl (6.3-8.2)
[2023-11-16 10:06] LABS: Calcium 9.1 mg/dl (8.4-10.2)
== END 2023-11-16 23:59 | disposition home or self-care (01) ==
LOC: LAB 09:10
PROVIDERS: PCP Internal Medicine Adolescent Medicine; Visit Provider Nurse Practitioner Family
DX: D69.6 Thrombocytopenia, unspecified (principal)
CPT/HCPCS: 36415; 80053; 85025

== ENCOUNTER 2024-03-22 10:50 | Outpatient (CLI) | payer MEDICARE, SELFPAY ==
[2024-03-22 11:08] LABS: Basophils # 0.1 K/mm3 (0-0.2); Basophils % 0.9 % (0.1-2.0); Eosinophils # 0.2 K/mm3 (0.0-0.4); Eosinophils % 2.6 % (0.1-12.0); Hematocrit 43.8 % (42.0-52.0); Hemoglobin 14.5 g/dL (14.1-18.0); Lymphocytes # 1.6 K/mm3 (0.7-4.5); Lymphocytes % 24.7 % (10-50); Mean Corpuscular HGB Conc 33.1 g/dL (31.8-35.4); Mean Corpuscular Hemoglobin 31.7 pg (27.0-31.2); Mean Corpuscular Volume 95.6 fl (80-94); Mean Platelet Volume 12.7 fl (7.4-10.4); Monocytes # 0.6 K/mm3 (0.1-1.0); Monocytes % 9.4 % (1.7-9.3); Neutrophils % 61.9 % (37.0-80.0); Platelet Count 143 K/mm3 (142-424); Red Blood Count 4.58 M/mm3 (4.60-6.20); Red Cell Distribution Width 12.8 % (11.5-17.5); White Blood Count 6.5 K/mm3 (4.8-10.8)
[2024-03-22 11:40] LABS: Alanine Aminotransferase 48 U/L (12-78); Albumin Level 4.1 g/dl (3.5-5.0); Alkaline Phosphatase 78 U/L (38-126); Anion Gap 9.1 mEq/L (5-15); Aspartate Amino Transferase 38 U/L (17-59); Bilirubin,Total 2.2 mg/dl (0.2-1.3); Blood Urea Nitrogen 30 mg/dl (9-20); Calcium 9.5 mg/dl (8.4-10.2); Carbon Dioxide 32 mmol/L (22.0-30.0); Chloride 105 mmol/L (98-107); Chol/HDL Ratio 3.2 (1-3.5); Cholesterol 140 mg/dl (140-200); Estimated Glomerular Filt Rate 73 ml/min (>60); GFR (African American) 88 ML/MIN (>60); Globulin 2.1 g/dL (1.3-3.2); Glucose 121 mg/dl (74-100); HDL Cholesterol 44 mg/dl (40-60); Potassium 4.1 mmoL/L (3.5-5.1); Sodium 142 mmol/L (136-145); Total Protein,Serum 6.2 g/dl (6.3-8.2); Triglycerides 114 mg/dl (30-150); VLDL Cholesterol 23 mg/dL (0-40)
[2024-03-22 11:51] LABS: Direct LDL Cholesterol 70.56 mg/dL (100-129)
[2024-03-22 12:11] LABS: Thyroid Stimulating Hormone 2.08 uIU/mL (0.465-4.68)
[2024-03-22 12:30] LABS: Vitamin B12 884 pg/mL (239-931)
[2024-03-22 12:40] LABS: Microalbumin/Creatinine Ratio 8.1
[2024-03-22 12:41] LABS: Creatinine,Urine Random 280 mg/dL (Not Estab.)
[2024-03-22 14:36] LABS: Hemoglobin A1C 6.3 % (4.0-6.0)
== END 2024-03-22 23:59 | disposition home or self-care (01) ==
LOC: LAB 10:51
PROVIDERS: PCP Nurse Practitioner Family; Visit Provider Nurse Practitioner Family
DX: D64.9 Anemia, unspecified (principal); E11.29 Type 2 diabetes mellitus with other diabetic kidney complication; I10 Essential (primary) hypertension; K59.00 Constipation, unspecified; D69.6 Thrombocytopenia, unspecified
CPT/HCPCS: 36415; 80053; 80061; 82043; 82570; 82607; 83036; 84443; 85025

== ENCOUNTER 2024-04-18 06:00 | Day surgery (SDC) | payer MEDICARE, SELFPAY ==
[2024-04-17 10:33] VITALS: BMI 24.1
[2024-04-18 06:22] VITALS: BP 161/85; PULSE 66; RESP 18; TEMP 36.3; O2SAT 97
[2024-04-18] MEDS: LACTATED RINGERS 1000ML 1,000 ML 50 ML IV (06:34)
--- NOTE | 2024-04-18 07:02 | EXP.ANES.CKL ---
[facility] Disclaimer: The information contained in this section may have been updated after the patient was seen, as this information can be updated by other users. Medical History Acquired trigger finger of both index fingers GERD (gastroesophageal reflux disease) Carotid artery calcification History of left heart catheterization (LHC) Seasonal allergies BPH (benign prostatic hyperplasia) Arthritis Hyperlipemia Hypertension Surgical History History of basal cell carcinoma excision History of colonoscopy Family History Other No significant family history Social History (Updated 04/18/24 @ 06:25 by Teresa Nair RN) Smoking Status: Never smoker alcohol intake: never substance use type: denies use current occupational status: retired Travel in the last 8 weeks: None housing: house current occupational exposures/hazards: No caffeine: Yes Have you lived/traveled outside US in past 30 days?: No Contact w/someone who lives/traveled outside US past 30 days?: No Exposure to someone with infectious disease in past 14 days?: No Do you have a fever (greater than 100.4 F or 38 C)?: No Have you tested positive for COVID-19: No Exposed to someone with COVID-19 in past 14 days?: No Do you have a sore throat?: No Do you have a cough?: No Do you have any weakness?: No Are you experiencing any nausea/vomitting?: No Do you have any diarrhea?: No Are you experiencing any unusual bleeding?: No Do you have any muscle aches/pain?: No Do you have any abdominal pain?: No Are you experiencing loss of taste or smell?: No [facility] Anesthesia Checklist Patient Identification Patient Identification: Arm Band and Verbal (Name & ) Structural Data Admitted From: Home Planned Operative Procedure/s: colonoscopy Consent for Planned Operative Procedure(s) Verified: Yes Verified Documents: Surgical Consent NPO Status Verified Time NPO: 00:00 Additional verifications Patient : No Anesthesia Reactions: No Hx Blood Transfusions: No Blood Transfusion Reaction: No Cephalosporin Allergy: No Previous Colonoscopy: Yes Cardiovascular Assessment Heart Sounds: S1 & S2 Pulse Strength: Strong Pulse Rhythm: Regular Peripheral Edema: No Airway Assessment Mallampati Score:: Class I C-Spine Mobility Assessed: Yes TMJ Mobility Assessed: Yes Dentition: Partials Neurological Assessment Level of Consciousness: Awake, Alert and Appropriate Hx Seizures: No Numbness or tingling in extremities: No Anesthesia Plan Anesthesia Risk discussed: Yes Anesthesia Plan: Verified ASA Class: III Anesthesia Type: MAC
--- NOTE | 2024-04-18 07:10 | P.PCN_ITS ---
Procedure: Date: 04/18/24 Patient Date of :: 1950 Procedure Performed:: Colonoscopy Indications:: History of colon polyps Note: Most recent colonoscopy in July 2021 was somewhat complicated by tortuous/ elongated colon and fairly significant spasticity. Bowel preparation was fair to moderate. Hemorrhoidal cushions confirmed. Prior tattoo region appeared normal. Prior colonoscopy in June 2020 revealed a complex proximal right colon polyp that was excised in a piecemeal fashion. Tattoo placed at this region. Performing Provider:: Heriberto Floyd MD Referring Provider:: . Sedation:: Monitored anesthesia care Procedure:: After informed consent was obtained the patient was taken to the endoscopy suite. Sedation ensued after the patient was transferred to the left lateral decubitus position. Pulse, blood pressure, and oxygen saturation were monitored throughout the procedure. Digital rectal exam revealed no significant abnormality. The colonoscope was placed in position. The entire colon was evaluated. The colonoscope was carefully removed and the patient was transferred to recovery in stable condition. Please see findings and specimens below for detail. Findings:: Bowel preparation fair Unchanged hemorrhoidal cushions Right colon tattoo site appeared normal Specimens:: None Recommendations:: Repeat colonoscopy in 3-5 years Complications:: No immediate Estimated blood obtained (mL): 0 Colonoscopy Component Colonoscopy Component Was a colonoscopy performed during today's procedure?: Yes Recommended follow up colonoscopy of at least 10 years?: No If no, follow up colonoscopy recommended in ___ years?: (See above) Reason for not recommending >/= 10 yr follow-up interval?: (See above)
[2024-04-18 07:11] VITALS: O2SAT 97
[2024-04-18 07:50] VITALS: BP 94/56; PULSE 66; RESP 17; TEMP 36.1; O2SAT 94
[2024-04-18 08:00] VITALS: BP 94/62; PULSE 61; RESP 17; O2SAT 98
[2024-04-18 08:10] VITALS: BP 111/70; PULSE 70; RESP 18; O2SAT 99
[2024-04-18 08:20] VITALS: BP 130/69; PULSE 72; RESP 17; O2SAT 98
[2024-04-19 06:41] LABS: POC Glucose,Bedside 107 (70-110)
== END 2024-04-18 08:25 | disposition home or self-care (01) ==
PROVIDERS: PCP Nurse Practitioner Family; Visit Provider Surgery
PROC: 0DJD8ZZ Inspection of Lower Intestinal Tract, Via Natural or Artificial Opening Endoscopic (ICD-10-PCS; CPT 45378; principal; 2024-04-18 07:30)
DX: K64.9 Unspecified hemorrhoids (principal); Z86.0100 Personal history of colon polyps, unspecified
CPT/HCPCS: 45378; 82962; J7120

== ENCOUNTER 2024-06-16 12:33 | Outpatient (CLI) | payer MEDICARE, SELFPAY ==
--- OUTSIDE RECORDS SUMMARY | 2024-06-16 12:36 | XMS_ITS ---
Author Organization [facility] Address [address] [place] [phone] Phone Care Team Providers Care Roll Cutter Name Role Phone Staci GOODSON, Edwar Rasheed [facility] [phone] Plan of Treatment No Plan of Treatment Recorded Assessments Includes: Assessments for all patient encounters No Assessments Recorded Medical Equipment - Implanted Devices Includes: Current and historical Devices No Medical Equipment Recorded Medications Administered Includes: Administered Medications in patient's chart No Administered Medications Recorded Results Includes: Results from 06/17/2023 through 06/16/2024 No Results Recorded For Specified Dates History of Present Illness History of Present Illness not supported for this document type No History of Present Illness Recorded Social History No Social History Recorded - Smoking Status Unknown Medical History Includes: Medical History in patient's chart No Medical History Recorded Family History Includes: Family History in patient's chart No Family History Recorded Review of Systems Review of Systems not supported for this document type No Review of Systems Recorded Mental Status No Mental Status Recorded Functional Status No Functional Status Recorded Physical Exam Physical Exam not supported for this document type No Physical Exam Recorded Insurance Includes: Active Insurance Policies Plan Name Member ID Group # Subscriber Relationship Effect mitchel Dates 1 - Medicare Part B [facility] [id number] James Refugio Self Clinical Notes Includes: Signed Clinical Notes starting from 02/19/2022 No Clinical Notes Recorded
--- OUTSIDE RECORDS SUMMARY | 2024-06-16 12:36 | XMS_ITS ---
Care Plan - [facility], [facility] Created on: June 16, 2024 James Huff : 1950 Sex: Male Author Organization [facility] Address [address] [place] [phone] Phone Care Team Providers Care Fabrication And Assembly Supervisor Name Role Phone Staci GOODSON, Edwar Rasheed [facility] [phone]
--- NOTE | 2024-06-16 12:40 | CA_ITS ---
FINAL REPORT CLINICAL HISTORY: LISET, Preop clearance COMPARISON: 09/21/2023 FINDINGS: RIGHT CAROTID: CCA PSV -63 cm/sec ICA PSV -233 cm/sec ICA/CCA PSV ratio -3.7. Comments: Severe plaque disease is noted. LEFTCAROTID: CCA PSV -69. cm/sec ICA PSV -122. cm/sec ICA/CCA PSV ratio -1.8. Comments: Moderate plaque disease is noted. Antegrade flow is seen within the vertebral arteries. IMPRESSION: Carotid stenosis classified less than 50% in the left carotid artery, although this is probably at the upper limits of less than 50%. This is more severe than seen on the prior ultrasound of 09/21/2023. Moderate plaque is present on the left side as well. Greater than 70% stenosis of the right internal carotid artery with severe plaque. Reviewed, Interpreted and Dictated by Cb De La Rosa MD Transcribed by Claudia Santiago Authenticated and [facility]
== END 2024-06-16 23:59 | disposition home or self-care (01) ==
LOC: RT 12:35
PROVIDERS: PCP Internal Medicine Adolescent Medicine; Visit Provider Nurse Practitioner Family
DX: I65.23 Occlusion and stenosis of bilateral carotid arteries (principal)
CPT/HCPCS: 93880

== ENCOUNTER 2024-06-19 14:05 | Outpatient (CLI) | payer MEDICARE, SELFPAY ==
--- NOTE | 2024-06-19 14:00 | CA_ITS ---
APPROVED REPORT EXAM: Comprehensive 2D, Doppler, and color-flow Echocardiogram Dry Dip Worker: Terri Betts RVT Ht: 6 ft 2 in Wt: 194lbs BSA: 2.15 BP: 144/63 mmHg Indications: PRE-OP,ABN EKG,HTN,EX-SMOKER 2D Dimensions LA Volume 35.70 mL LA Volume Index 16.60 mL/m2 (M/F) 16-34 M-Mode Dimensions RVDd 2.34 cm (0.9-2.6) LA Diam 4.25 cm (1.9-4.0) LVDd 4.38 cm (3.5-5.7) LVDs 2.72 cm (3.5-5.7) IVSd 1.44 cm (0.6-1.1) PWd 0.68 cm (0.6-1.1) EF (Teich) 68.30% FS 37.90% EDV (Teich) 86.80 mL TAPSE 2.90 (<1.7) ESV (Teich) 27.50 mL LV Diastology E Decel Time 197 (160-240 msec) E/A Ratio 0.9 Aortic Valve KIET Index 1.10 cm2/m2 AoV Peak Yousuf. 144.0 (50-130 cm/s) AO Peak GR. 8.30 mmHg AO Mean GR. 4.90 (<5 mmHg) AO VTI 33.8 (18-25 cm) KIET (VTI) 2.42 (2.5-4.5 cm2) Mitral Valve MV E Max Yousuf. 80.0 (40-130 cm/s) MV A Velocity 94.0 (40-130 cm/s) E/A Ratio 0.85 MV PHT 58.0 ms Pulmonary Valve PV Peak Velocity 72.0 (50-150 cm/s) Tricuspid Valve TR P. Velocity 266.00 cm/s RAP Estimate 10.00 mmHg RVSP 38.30 mmHg Left Ventricle The left ventricle is normal size. The left ventricular systolic function is normal. The left ventricular ejection fraction is within the normal range. There is increased LV wall thickness. There is normal LV segmental wall motion. The left ventricular diastolic function is normal. LVEF is 55%. Right Ventricle The right ventricle is normal size. The right ventricular systolic function is normal. Atria The left atrium size is normal. The right atrium size is normal. There is no Doppler evidence of interatrial shunt. Aortic Valve The aortic valve opens well. There is no aortic valvular stenosis. No aortic regurgitation is present. Mitral Valve The mitral valve is normal in structure. No evidence of mitral valve stenosis. Mild mitral valve regurgitation noted. Tricuspid Valve Tricuspid valve is grossly normal in structure and function. Mild tricuspid regurgitation. RVSP is 20-25 mmHg. Pulmonic Valve The pulmonary valve is normal in structure. Trace pulmonic regurgitation. Great Vessels The aortic root is normal in size. IVC is normal in size and collapses >50% with inspiration. Pericardium There is no pericardial effusion. Other Information Study Quality: Fair Conclusion Normal biventricular systolic function. Mild MR, mild TR. Electronically signed by : Karly Mario MD 06/19/2024 14:49:19
--- OUTSIDE RECORDS SUMMARY | 2024-06-19 14:07 | XMS_ITS ---
Care Plan - [facility], [facility] Created on: June 19, 2024 James Huff : 1950 Sex: Male Author Organization [facility] Address [address] [place] [phone] Phone Care Team Providers Care Automobile Upholstery Trim Installer Name Role Phone Staci GOODSON, Edwar Rasheed [facility] [phone]
--- OUTSIDE RECORDS SUMMARY | 2024-06-19 14:07 | XMS_ITS ---
Author Organization [facility] Address [address] [place] [phone] Phone Care Team Providers Care Taker Out Name Role Phone Staci GOODSON, Edwar Rasheed [facility] [phone] Plan of Treatment No Plan of Treatment Recorded Assessments Includes: Assessments for all patient encounters No Assessments Recorded Medical Equipment - Implanted Devices Includes: Current and historical Devices No Medical Equipment Recorded Medications Administered Includes: Administered Medications in patient's chart No Administered Medications Recorded Results Includes: Results from 06/20/2023 through 06/19/2024 No Results Recorded For Specified Dates History [...] mitchel Dates 1 - Medicare Part B [facility] [id number] James Refugio Self Clinical Notes Includes: Signed Clinical Notes starting from 02/19/2022 No Clinical Notes Recorded
== END 2024-06-19 23:59 | disposition home or self-care (01) ==
LOC: RT 14:06
PROVIDERS: PCP Internal Medicine Adolescent Medicine; Visit Provider Physician Assistant
DX: Z01.810 Encounter for preprocedural cardiovascular examination (principal); I34.0 Nonrheumatic mitral (valve) insufficiency; I36.1 Nonrheumatic tricuspid (valve) insufficiency; R94.31 Abnormal electrocardiogram [ECG] [EKG]
CPT/HCPCS: 93306

== ENCOUNTER 2024-10-02 09:37 | Outpatient (RCR) | payer MEDICARE, SELFPAY | END 2024-10-02 23:59 | disposition home or self-care (01) | LOC: PT 09:37 | PROVIDERS: PCP Internal Medicine Adolescent Medicine; Visit Provider Orthopaedic Surgery | DX: M16.12 Unilateral primary osteoarthritis, left hip (principal); M54.50 Low back pain, unspecified | CPT/HCPCS: 97110; 97162 ==

== ENCOUNTER 2024-10-02 12:55 | Outpatient (CLI) | payer MEDICARE, SELFPAY ==
--- OUTSIDE RECORDS SUMMARY | 2024-09-14 04:15 | XMS_ITS ---
Author Organization [facility] PE D [place] Address [address] [place] [address] Care Team Providers Care Modeling And Simulation Analyst Name Role Phone Alana Nair Primary Care Provider Allergies Allergen (clinical drug ingredient) Drug/Non Drug Allergy documented on EMR Reaction Allergy Type Onset Date Status DAIRY (uncoded) Unknown Allergy Acti ve Red meat RED MEAT (uncoded) rash Allergy A ctive Results Component Value Reference Range Notes LIPID PANEL, STANDARD (7600) Reviewed date:09/19/2024 10:50:51 AM Interpretation: Performing Lab:[facility] Uzka[address] [facility], [facility] [id number] Cricket Polo Notes/Report: NON-FASTING; NON-FASTING; NON-FASTING; NON-FASTING FASTING:YES FASTING: YES CHOLESTEROL, TOTAL 137 <200 mg/dL HDL CHOLESTEROL 46 > OR = 40 mg/dL TRIGLYCERIDES 112 <150 mg/dL LDL-CHOLESTEROL 71 Reference range: <100 Desirable range <100 mg/dL for primary prevention; <70 mg/dL for patients with CHD or diabetic patients with > or = 2 CHD risk factors. LDL-C is now calculated using the Emiliano calculation, which is a validated novel method providing better accuracy than the Friedewald equation in the estimation of LDL-C. Michael GOFF et al. SALVADOR. 2013;310(19): 8299-5415 (http://education.edenes.com/faq/QLS783) CHOL/HDLC RATIO 3.0 <5.0 (calc) NON HDL CHOLESTEROL 91 <130 mg/dL (calc) For patients with diabetes plus 1 major ASCVD risk factor, treating to a non-HDL-C goal of <100 mg/dL (LDL-C of <70 mg/dL) is considered a therapeutic option. COMPREHENSIVE METABOLIC PANCourt Moore ([id number]) Reviewed date:09/19/2024 10:50:51 AM Interpretation: Performing Lab:[facility] [employer], [id number] Cricket Polo Notes/Report: NON-FASTING; NON-FASTING; NON-FASTING; NON-FASTING FASTING:YES FASTING: YES GLUCOSE 141 65-99 mg/dL Fasting reference interval For someone without known diabetes, a glucose value >125 mg/dL indicates that they may have diabetes and this should be confirmed with a follow-up test. UREA NITROGEN (BUN) 22 7-25 mg/dL CREATININE 0.93 0.70-1.28 mg/dL EGFR 86 > OR = 60 mL/min/1.73m2 BUN/CREATININE RATIO SEE NOTE: 6-22 (calc) Not Reported: BUN and Creatinine are within reference range. SODIUM 146 135-146 mmol/L POTASSIUM 4.2 3.5-5.3 mmol/L CHLORIDE 108 98-110 mmol/L CARBON DIOXIDE 31 20-32 mmol/L CALCIUM 9.3 8.6-10.3 mg/dL PROTEIN, TOTAL 6.1 6.1-8.1 g/dL ALBUMIN 4.1 3.6-5.1 g/dL GLOBULIN 2.0 1.9-3.7 g/dL (calc) ALBUMIN/GLOBULIN RATIO 2.1 1.0-2.5 (calc) BILIRUBIN, TOTAL 1.5 0.2-1.2 mg/dL ALKALINE PHOSPHATASE 91 35-144 U/L AST 21 10-35 U/L ALT 25 9-46 U/L CBC (INCLUDES DIFF/PLT) (639 9) Reviewed date:09/19/2024 10:50:51 AM Interpretation: Performing Lab:[facility] Oofu5172 [employer], UniphoreXbsgJZ[address] Cricket Polo Notes/Report: NON-FASTING; NON-FASTING; NON-FASTING; NON-FASTING FASTING:YES FASTING: YES WHITE BLOOD CELL COUNT 4.6 3.8-10.8 Thousand/ uL RED BLOOD CELL COUNT 4.33 4.20-5.80 Million/uL HEMOGLOBIN 13.4 13.2-17.1 g/dL HEMATOCRIT 43.6 38.5-50.0 % MCV 100.7 80.0-100.0 fL MCH 30.9 27.0-33.0 pg MCHC 30.7 32.0-36.0 g/dL For adults, a slight decrease in the calculated MCHC value (in the range of 30 to 32 g/dL) is most likely not clinically significant; however, it should be interpreted with caution in correlation with other red cell parameters and the patient's clinical condition. RDW 12.8 11.0-15.0 % PLATELET COUNT 109 140-400 Thousand/uL MPV 13.0 7.5-12.5 fL ABSOLUTE NEUTROPHILS 2686 1409-1274 cells/uL ABSOLUTE LYMPHOCYTES [phone] cells/uL ABSOLUTE MONOCYTES 405 200-950 cells/uL ABSOLUTE EOSINOPHILS 110 15-500 cells/uL ABSOLUTE BASOPHILS 32 0-200 cells/uL NEUTROPHILS 58.4 LYMPHOCYTES 29.7 MONOCYTES 8.8 EOSINOPHILS 2.4 BASOPHILS 0.7 HEMOGLOBIN A1c (496) Reviewed date:09/19/2024 10:50:51 AM Interpretation: Performing Lab:[facility], [facility], [place] [id number] Cricket Polo Notes/Report: NON-FASTING; NON-FASTING; NON-FASTING; NON-FASTING FASTING:YES FASTING: YES HEMOGLOBIN A1c 7.0 <5.7 % For someone without known diabetes, a hemoglobin A1c value of 6.5% or greater indicates that they may have diabetes and this should be confirmed with a follow-up test. For someone with known diabetes, a value <7% indicates that their diabetes is well controlled and a value greater than or equal to 7% indicates suboptimal control. A1c targets should be individualized based on duration of diabetes, age, comorbid conditions, and other considerations. Currently, no consensus exists regarding use of hemoglobin A1c for diagnosis of diabetes for children. REASON FOR VISIT 6 Month Follow up Medications Medication SIG (Take, Route, Frequency, Duration) Notes Start Date End Date Status Rosuvastatin Calcium 40 MG TAKE 1 TABLET BY MOUTH ONCE DAILY; Duration: 90 Active Losartan Potassium 25 MG TAKE 1 TABLET BY MOUTH ONCE DAILY; Duration: 90 Active Clopidogrel Bisulfate 75 MG 1 tab(s) orally once a day; Duration: 90 Active TEST STRIPS AND LANCETS NA FOR TWICE WEEKLY FSBS TESTING NA TWICE WEEKLY; Duration: 30 DAYS *Please review for potential replacement for e-prescription and drug interaction check* 04/12/2019 Active Calcium Carbonate 600 MG 1 TAB CHEWED ONCE A DAY *Please review and pick correct strength-formulatio n from GlideTVan options. If intended option is not shown, discontinue and re-order from Quick Search* Active Atenolol 25 MG 1 tab(s) orally once a day; Duration: 90 days Active Diclofenac Sodium 75 MG 1 tab(s) orally once a day; Duration: 90 days Active Omeprazole 20 MG 1 cap(s) orally once a day; Duration: 90 days 04/04/2024 Active Diclofenac Sodium 1 % 2 gram applied topically 4 times a day; Duration: 10 days prn 05/11/2022 Active Aspirin 81 MG 1 tab(s) orally once a day; Duration: 90 days Active MULTIVITAMIN WITH MINERALS THERAPEUTIC MULTIPLE VITAMINS WITH MINERALS 1 TAB(S) ORALLY ONCE A DAY; Duration: 30 DAY(S) *Please review for potential replacement for e-prescription and drug interaction check* Active Vital Signs Temperature 97.6 degrees Fahrenheit 09/15/19 25 Heart Rate 72 /min 09/14/2024 Blood pressure systolic 148 mm Hg 09/15/19 25 Blood pressure diastolic 84 mm Hg 025 Height 6 ft 2 in in 09/14/2024 Weight 192 lbs 09/14/2024 BMI 24.65 kg/m2 09/14/2024 Encounters Encounter Location Date Provider Diagnosis [facility] [place] [address] [facility] [address] [place] [address] 09/14/2024 Alana Nair Essential hypertensi on I10 ; Medicare annual wellness visit, subsequent Z00.00 ; Hyperlipidemia, unspecified E78.5 ; 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 No medication changes at this time. He did see cardiology preoperatively who suggested possible stress test but not until after surgery. I encouraged him to contact them to arrange for FU 09/14/2024 Medicare annual wellness visit, subsequent (ICD-10 - Z00.00) wellness for age reviewed 09/14/2024 Hyperlipidemia, unspecified (ICD-10 - E78.5) Ordered labs to monitor lipid levels. Will review and make changes as needed. 09/14/2024 Type 2 diabetes mellitus with other diabetic kidney complication (ICD-10 - E11.29) Patient has been controlling DM with lifestyle changes. Ordered labs to monitor patient's blood glucose and A1C. Will review and make changes as needed. 09/14/2024 Chronic allergic rhinitis (ICD-10 - J30.9) No new complaints; no changes at this time. 09/14/2024 Chronic anemia (ICD-10 - D64.9) 09/14/2024 Constipation, unspecified constipation type (ICD-10 - K59.00) imprpoved 09/14/2024 Thrombocytopenia (ICD-10 - D69.6) stable on labs, monitor 09/14/2024 Dermatitis (ICD-10 - L30.9) this is an unusual place for a fungal infection... rec trial of low potency HC cream OTC BID for 7-14 days, avoiding the eyes 09/14/2024 Carotid stenosis, bilateral (ICD-10 - I65.23) stable on imaging this year Plan Of Treatment Treatment Notes Assessment Notes Essential hypertension Patient's blood p ressure remains well controlled. No medication changes at this time. He did see cardiology preoperatively who suggested possible stress test but not until after surgery. I encouraged him to contact them to arrange for FU Hyperlipidemia, unspecified Ordered labs to monitor lipid levels. Will review and make changes as needed. Type 2 diabetes mellitus wit h other diabetic kidney complication Patient has been controlling DM with lifestyle changes. Ordered labs to monitor patient's blood glucose and A1C. Will review and make changes as needed. Chronic allergic rhinitis No new complai nts; no changes at this time. Next Appt Details Follow Up: 6 Months, Reason: Provider Name:Alana zamudio, 03/19/2025 08:00:00 AM, [address], [address], [place], [address], Progress Notes * James PRITCHETT JR, JrDOB:[birth year] (74 yo M)Acc No.[id number]:09/14/2024 Progress Notes Patient: James LOEPZ JR, Jr Provider: NASRA Diop :1950 A ge:74 Y S ex:Male Date:09/14/2024 Address:[address] [place] [address], [place], [id number] Subjective: * Chief Complaints: * 1 . 6 Month Follow up. * HPI: g en: 74 year old man presenting for a follow up to monitor his HTN, CAD, carotid stenosis, and osteoarthritis which is advanced in his left hip - following with orthopedics. Ultimately underwent back surgery with Dr Escobedo instead of left hip replacement. Pain is different now and goes down the left leg causing some near falls unless using his cane. Has had FU with NS twice and has another Fu upcoming. Has not done any outpatient PT. Still performing own ADLS. His allergic dermatitis is significantly improved and really is not following any dietary restrictions at this point. Has stopped regular use of antihistamine. He does note some erythema across the nasal bridge that isn't improving with topical antifungal which was recommended by straw boss DM, off of pharmacotherapy and A1C < 7.. Eye exam reported normal within the last year No CP, SOA, palpitations, edema. No longer following with urology and reports that his chronic lower abdominal symptoms have completely resolved since his back surgery. * ROS: F UNCTIONAL STATUS: ADLS I ndependent for all ADL/IADL. R ESPIRATORY: Reviewed, No Symptoms Reported: Y es. C ARDIOLOGY: Reviewed, No Symptoms Reported: Y es. C ONSTITUTIONAL: Reviewed, No Symptoms Reported: Y es. G ASTROENTEROLOGY: Heartburn y es, b margarita with PPI, not H2 eduardo. n o V omiting. n o A bdominal pain. n o D iarrhea. M USCULOSKELETAL: Joint pain y es, b ilat hips, mostly on L side, i ntermittent and depending on activity. N EUROLOGY: Reviewed, No Symptoms Reported: Y es. U ROLOGY: Reviewed, No Symptoms Reported: Y es. * Medical History: H [place], Diabetes, type II, Hyperlipidemia, Colonoscopy 2013, Dr Bowles; 2018 Dr Floyd; 2020 Dr Floyd, one tubular adenoma, Eczema, EGD 1998 with erosive duodenitis and nonerosive gastritis, on chronic PPI therapy, Left hip osteoarthritis, Alpha-gal allergy, followed by Dr Martinez, Carotid stenosis, R > L. * Surgical History: L t foot surgery 1992, Carpal Tunnel and Trigger Finger-rt hand , Basal Cell Carcinoma-nose 2005, Back Surgery 06/2024. * Hospitalization/Major Diagno stic Procedure: a bscessed tooth-infection throughout body , episodes of syncope . * Family History: F ather: . M other: , Breast cancer/bone cancer diabetes. P aternal Grand Father: . P aternal Grand Mother: . M aternal Grand Father: . Maternal Grand Mother: , Diabetes. P aternal uncle: . P aternal aunt: . M aternal uncle: alive. M aternal aunt: . S iblings: alive, heart disease, asthma. C hildren: alive, son is . 3 sister(s) . 1 son(s) , 1 daughter(s) - healthy. . * Social History: S moking A re you a:: nonsmoker. R ecreational drug use: no. Exercise: yes, 3-4 xs weekly. Home smoke detector use: yes. Caffeine: yes, frequency:2+ cups coffee per day. Living Will: Yes. Alcohol: socially, occasional beer. Travel outside [place]: no. 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 * Medications: T aking Calcium Carbonate 600 MG TABLET, CHEWABLE 1 TAB CHEWED ONCE A DAY , Notes to Pharmacist: *Please review and pick correct strength-formulation from Medispan options. If intended option is not shown, discontinue and re-order from Quick Search*, Taking TEST STRIPS AND LANCETS NA PER INSURANCE COVERAGE WITH GLUCOMETER FOR TWICE WEEKLY FSBS TESTING NA TWICE WEEKLY , Notes to Pharmacist: *Please review for potential replacement for e-prescription and drug interaction check*, Taking MULTIVITAMIN WITH MINERALS THERAPEUTIC MULTIPLE VITAMINS WITH MINERALS TABLET 1 TAB(S) ORALLY ONCE A DAY , Notes to Pharmacist: *Please review for potential replacement for e-prescription and drug interaction check*, Taking Diclofenac Sodium 1 % Gel 2 gram applied topically 4 times a day , Notes to Pharmacist: prn, Taking Aspirin 81 MG Tablet Delayed Release 1 tab(s) orally once a day , Taking Diclofenac Sodium 75 MG Tablet Delayed Release 1 tab(s) orally once a day , Taking Atenolol 25 MG Tablet 1 tab(s) orally once a day , Taking Omeprazole 20 MG Capsule Delayed Release 1 cap(s) orally once a day , Taking Clopidogrel Bisulfate 75 MG Tablet 1 tab(s) orally once a day , Taking Losartan Potassium 25 MG Tablet TAKE 1 TABLET BY MOUTH ONCE DAILY , Taking Rosuvastatin Calcium 40 MG Tablet TAKE 1 TABLET BY MOUTH ONCE DAILY , Medication List reviewed and reconciled with the patient * Allergies: R ED MEAT: rash, DAIRY. Objective: * Vitals: N urse: KJ, Pain: 9, Temp: 97.6, RR: 16, HR: 72, BP: 148/84, Ht: 6 ft 2 in, Wt: 192, BMI:24.65, Repeat BP: 128/84. * Examination: G eneral Examination: General P leasant and Cooperative, NAD on RA,. Chest: n ormal shape and expansion. Heart: R RR, No m/r/g/h, Nl S1S2, No JVD, 2(+) symmetric pulses, No edema,. Lungs: L CTAB, No wheezes, crackles or rhonchi, Good air movement,. Abdomen: S oft, NTND, No organomegaly or peritoneal signs..? Neurologic Exam: A lert and oriented x 3. Skin: v blayne mild erythema over the nasal bridge and extending just to the cheek on either side. Peripheral pulses: n ormal (2+) posterior tibial pulses bilaterally. Extremities: n o clubbing, no edema, no foot lesions. neck S upple, no thyromegaly, No LAD. No bruit heard on auscultation of carotids.. Psych N ormal Mood/Affect. diabetic foot exam V isual exam of foot performed: Y es. Assessment: * [facility]: [facility]. [facility], subsequent - Z00.00 (Primary) 2 . E ssential hypertension - I10 3 . H yperlipidemia, unspecified - E78.5 ?4. T ype 2 diabetes mellitus with other diabetic kidney complication - E11.29 5. C hronic allergic rhinitis - J30.9 6 . C hronic anemia - D64.9 ? 7 . C onstipation, unspecified constipation type - K59.00 8 . T hrombocytopenia - D69.6 9 . D ermatitis - L30.9 1 0. C arotid stenosis, bilateral - I65.23 Plan: * Treatment: 2. E ssential hypertension Notes: Patient's blood pressure remains well controlled. No medication changes at this time. He did see cardiology preoperatively who suggested possible stress test but not until after surgery. I encouraged him to contact them to arrange for FU 3. H yperlipidemia, unspecified Notes: Ordered labs to monitor lipid levels. Will review and make changes as needed. 4. T ype 2 diabetes mellitus with other diabetic kidney complication L AB: LIPID PANEL, STANDARD (7600) (Collection Date & Time - 09/14/2024 09:04 AM) Value Reference Range T RIGLYCERIDES 112 <150 - mg/dL * C HOLESTEROL, TOTAL 137 <200 - mg/dL * H DL CHOLESTEROL 46 > OR = 40 - mg/dL * L DL-CHOLESTEROL 71 - mg/dL (calc) * C HOL/HDLC RATIO 3.0 <5.0 - (calc) * N ON HDL CHOLESTEROL 91 <130 - mg/dL (calc) * Rama Gupta N 09/19/19 25 03:27:16 PM EDT > left Natividad Cooley 09/19/2024 10:49:58 AM EDT > Patient agreed to start Metformin. Sent medication to pharmacyThis lab was reviewed by Natividad Gonzalez on 09/19/2024 at 10:50 AM EDT ?LAB: COMPREHENSIVE METABOLIC PANEL (41467) (Collection Date & Time - 09/14/2024 09:04 AM)* Value Reference Range G LUCOSE 141 H 65-99 - mg/dL * U MAGGIE NITROGEN (BUN) 22 7-25 - mg/dL * C REATININE 0.93 0.70-1.28 - mg/dL * B UN/CREATININE RATIO SEE NOTE: 08-27 - (calc) * S ODIUM 146 135-146 - mmol/L * P OTASSIUM 4.2 3.5-5.3 - mmol/L * C HLORIDE 108 98-110 - mmol/L * C ARBON DIOXIDE 31 20-32 - mmol/L * C ALCIUM 9.3 8.6-10.3 - mg/dL * P ROTEIN, TOTAL 6.1 6.1-8.1 - g/dL * A LBUMIN 4.1 3.6-5.1 - g/dL * G LOBULIN 2.0 1.9-3.7 - g/dL (calc ) * A LBUMIN/GLOBULIN RATIO 2.1 1.0-2.5 - (calc) * B ILIRUBIN, TOTAL 1.5 H 0.2-1.2 - mg/dL * A LKALINE PHOSPHATASE 91 35-144 - U/L * A ST 21 10-35 - U/L * A LT 25 9-46 - U/L * E GFR 86 > OR = 60 - mL/min/1 .73m2 * Rama Gupta 09/19/19 25 03:27:16 PM EDT > left vm Natividad Gonzalez 09/19/2024 10:49:58 AM EDT > Patient agreed to start Metformin. Sent medication to pharmacyThis lab was reviewed by Natividad Goznalez on 09/19/2024 at 10:50 AM EDT ?LAB: CBC (INCLUDES DIFF/PLT) (0429) (Collection Date & Time - 09/14/2024 09:04 AM)* Value Reference Range W KEYSHA BLOOD CELL COUNT 4.6 3.8-10.8 - Thousan d/uL * R ED BLOOD CELL COUNT 4.33 4.20-5.80 - Million/ uL * H EMOGLOBIN 13.4 13.2-17.1 - g/dL * H EMATOCRIT 43.6 38.5-50.0 - % * M CV 100.7 H 80.0-100.0 - fL * M CH 30.9 27.0-33.0 - pg * M CHC 30.7 L 32.0-36.0 - g/dL * R DW 12.8 11.0-15.0 - % * P LATELET COUNT 109 L 140-400 - Thousand/u L * N EUTROPHILS 58.4 - % * A BSOLUTE NEUTROPHILS 2686 1640-0332 - cells/uL * L YMPHOCYTES 29.7 - % * A BSOLUTE LYMPHOCYTES 6435 464-9057 - cells/uL * M ONOCYTES 8.8 - % * A BSOLUTE MONOCYTES 405 200-950 - cells/uL * E OSINOPHILS 2.4 - % * A BSOLUTE EOSINOPHILS 110 15-500 - cells/uL * B ASOPHILS 0.7 - % * A BSOLUTE BASOPHILS 32 0-200 - cells/uL * M PV 13.0 H 7.5-12.5 - fL * Santiago Guptamayra Swan 09/19/19 03:27:16 PM EDT > left Natividad Harvey 09/19/2024 10:49:58 AM EDT > Patient agreed to start Metformin. [facility] medication to [facility] [place] lab was reviewed by Natividad Gonzalez on 09/19/2024 at 10:50 AM EDT ?LAB: HEMOGLOBIN A1c (496) (Collection Date & Time - 09/14/2024 09:04 AM)* Value Reference Range H EMOGLOBIN A1c 7.0 H <5.7 - % * Santiago Guptamayra Swan 09/19/19 03:27:16 PM EDT > left Natividad Harvey 09/19/2024 10:49:58 AM EDT > Patient agreed to start Metformin. Sent medication to [facility] [place] lab was reviewed by Natividad Gonzalez on 09/19/2024 at 10:50 AM EDT Notes: Patient has been controlling DM with lifestyle changes. Ordered labs to monitor patient's blood glucose and A1C. Will review and make changes as needed.??5.?Chronic allergic rhinitis? Notes: No new complaints; no changes at this time.??6.?Chronic anemia?LAB: LIPID PANEL, STANDARD (7600) (Collection Date & Time - 09/14/2024 09:04 AM)* Value Reference Range T RIGLYCERIDES 112 <150 - mg/dL * C HOLESTEROL, TOTAL 137 <200 - mg/dL * H DL CHOLESTEROL 46 > OR = 40 - mg/dL * L DL-CHOLESTEROL 71 - mg/dL (calc) * C HOL/HDLC RATIO 3.0 <5.0 - (calc) * N ON HDL CHOLESTEROL 91 <130 - mg/dL (calc) * Rama Gupta 09/19/19 03:27:16 PM EDT > left Natividad Cooley 09/19/2024 10:49:58 AM EDT > Patient agreed to start Metformin. Sent medication to pharmacyThis lab was reviewed by Natividad Gonzalez on 09/19/2024 at 10:50 AM EDT ?LAB: COMPREHENSIVE METABOLIC PANEL (28148) (Collection Date & Time - 09/14/2024 09:04 AM)* Value Reference Range G LUCOSE 141 H 65-99 - mg/dL * U MAGGIE NITROGEN (BUN) 22 7-25 - mg/dL * C REATININE 0.93 0.70-1.28 - mg/dL * B UN/CREATININE RATIO SEE NOTE: 6-22 - (calc) * S ODIUM 146 135-146 - mmol/L * P OTASSIUM 4.2 3.5-5.3 - mmol/L * C HLORIDE 108 98-110 - mmol/L * C ARBON DIOXIDE 31 20-32 - mmol/L * C ALCIUM 9.3 8.6-10.3 - mg/dL * P ROTEIN, TOTAL 6.1 6.1-8.1 - g/dL * A LBUMIN 4.1 3.6-5.1 - g/dL * G LOBULIN 2.0 1.9-3.7 - g/dL (calc ) * A LBUMIN/GLOBULIN RATIO 2.1 1.0-2.5 - (calc) * B ILIRUBIN, TOTAL 1.5 H 0.2-1.2 - mg/dL * A LKALINE PHOSPHATASE 91 35-144 - U/L * A ST 21 10-35 - U/L * A LT 25 9-46 - U/L * E GFR 86 > OR = 60 - mL/min/1 .73m2 * Rama Gupta 09/19/19 03:27:16 PM EDT > left Natividad Harvey 09/19/2024 10:49:58 AM EDT > Patient agreed to start Metformin. Sent medication to pharmacyThis lab was reviewed by Natividad Gonzalez on 09/19/2024 at 10:50 AM EDT ?LAB: CBC (INCLUDES DIFF/PLT) (6399) (Collection Date & Time - 09/14/2024 09:04 AM)* Value Reference Range W KEYSHA BLOOD CELL COUNT 4.6 3.8-10.8 - Thousan d/uL * R ED BLOOD CELL COUNT 4.33 4.20-5.80 - Million/ uL * H EMOGLOBIN 13.4 13.2-17.1 - g/dL * H EMATOCRIT 43.6 38.5-50.0 - % * M CV 100.7 H 80.0-100.0 - fL * M CH 30.9 27.0-33.0 - pg * M CHC 30.7 L 32.0-36.0 - g/dL * R DW 12.8 11.0-15.0 - % * P LATELET COUNT 109 L 140-400 - Thousand/u L * N EUTROPHILS 58.4 - % * A BSOLUTE NEUTROPHILS 2686 7956-3523 - cells/uL * L YMPHOCYTES 29.7 - % * A BSOLUTE LYMPHOCYTES [phone] - cells/uL * M ONOCYTES 8.8 - % * A BSOLUTE MONOCYTES 405 200-950 - cells/uL * E OSINOPHILS 2.4 - % * A BSOLUTE EOSINOPHILS 110 15-500 - cells/uL * B ASOPHILS 0.7 - % * A BSOLUTE BASOPHILS 32 0-200 - cells/uL * M PV 13.0 H 7.5-12.5 - fL * Rama Gupta 09/19/19 25 03:27:16 PM EDT > left Natividad Harvey 09/19/2024 10:49:58 AM EDT > Patient agreed to start Metformin. Sent medication to pharmacyThis lab was reviewed by Natividad Gonzalez on 09/19/2024 at 10:50 AM EDT ?LAB: HEMOGLOBIN A1c (496) (Collection Date & Time - 09/14/2024 09:04 AM)* Value Reference Range H EMOGLOBIN A1c 7.0 H <5.7 - % * Rama Gupta 09/19/19 03:27:16 PM EDT > left Natividad Harvey 09/19/2024 10:49:58 AM EDT > Patient agreed to start Metformin. Sent medication to pharmacyThis lab was reviewed by Natividad Gonzalez on 09/19/2024 at 10:50 AM EDT 7.?Constipation, unspecified constipation type? Clinical Notes: imprpoved??8.?Thrombocytopenia?LAB: LIPID PANEL, STANDARD (7600) (Collection Date & Time - 09/14/2024 09:04 AM)* Value Reference Range T RIGLYCERIDES 112 <150 - mg/dL * C HOLESTEROL, TOTAL 137 <200 - mg/dL * H DL CHOLESTEROL 46 > OR = 40 - mg/dL * L DL-CHOLESTEROL 71 - mg/dL (calc) * C HOL/HDLC RATIO 3.0 <5.0 - (calc) * N ON HDL CHOLESTEROL 91 <130 - mg/dL (calc) * Rama Gupta 09/19/19 03:27:16 PM EDT > left Natividad Cooley 09/19/2024 10:49:58 AM EDT > Patient agreed to start Metformin. Sent medication to pharmacyThis lab was reviewed by Natividad Gonzalez on 09/19/2024 at 10:50 AM EDT ?LAB: COMPREHENSIVE METABOLIC PANEL (42758) (Collection Date & Time - 09/14/2024 09:04 AM)* Value Reference Range G LUCOSE 141 H 65-99 - mg/dL * U MAGGIE NITROGEN (BUN) 22 7-25 - mg/dL * C REATININE 0.93 0.70-1.28 - mg/dL * B UN/CREATININE RATIO SEE NOTE: 6-22 - (calc) * S ODIUM 146 135-146 - mmol/L * P OTASSIUM 4.2 3.5-5.3 - mmol/L * C HLORIDE 108 98-110 - mmol/L * C ARBON DIOXIDE 31 20-32 - mmol/L * C ALCIUM 9.3 8.6-10.3 - mg/dL * P ROTEIN, TOTAL 6.1 6.1-8.1 - g/dL * A LBUMIN 4.1 3.6-5.1 - g/dL * G LOBULIN 2.0 1.9-3.7 - g/dL (calc ) * A LBUMIN/GLOBULIN RATIO 2.1 1.0-2.5 - (calc) * B ILIRUBIN, TOTAL 1.5 H 0.2-1.2 - mg/dL * A LKALINE PHOSPHATASE 91 35-144 - U/L * A ST 21 10-35 - U/L * A LT 25 9-46 - U/L * E GFR 86 > OR = 60 - mL/min/1 .73m2 * Rama Gupta 09/19/19 03:27:16 PM EDT > left vm Natividad Gonzalez 09/19/2024 10:49:58 AM EDT > Patient agreed to start Metformin. Sent medication to pharmacyThis lab was reviewed by Natividad Gonzalez on 09/19/2024 at 10:50 AM EDT ?LAB: CBC (INCLUDES DIFF/PLT) (6399) (Collection Date & Time - 09/14/2024 09:04 AM)* Value Reference Range W KEYSHA BLOOD CELL COUNT 4.6 3.8-10.8 - Thousan d/uL * R ED BLOOD CELL COUNT 4.33 4.20-5.80 - Million/ uL * H EMOGLOBIN 13.4 13.2-17.1 - g/dL * H EMATOCRIT 43.6 38.5-50.0 - % * M CV 100.7 H 80.0-100.0 - fL * M CH 30.9 27.0-33.0 - pg * M CHC 30.7 L 32.0-36.0 - g/dL * R DW 12.8 11.0-15.0 - % * P LATELET COUNT 109 L 140-400 - Thousand/u L * N EUTROPHILS 58.4 - % * A BSOLUTE NEUTROPHILS 2686 3282-3902 - cells/uL * L YMPHOCYTES 29.7 - % * A BSOLUTE LYMPHOCYTES 2789 496-8418 - cells/uL * M ONOCYTES 8.8 - % * A BSOLUTE MONOCYTES 405 200-950 - cells/uL * E OSINOPHILS 2.4 - % * A BSOLUTE EOSINOPHILS 110 15-500 - cells/uL * B ASOPHILS 0.7 - % * A BSOLUTE BASOPHILS 32 0-200 - cells/uL * M PV 13.0 H 7.5-12.5 - fL * Rama Gupta 09/19/19 03:27:16 PM EDT > left Natividad Harvey 09/19/2024 10:49:58 AM EDT > Patient agreed to start Metformin. Sent medication to pharmacyThis lab was reviewed by Natividad Gonzalez on 09/19/2024 at 10:50 AM EDT ?LAB: HEMOGLOBIN A1c (496) (Collection Date & Time - 09/14/2024 09:04 AM)* Value Reference Range H EMOGLOBIN A1c 7.0 H <5.7 - % * Rama Gupta 09/19/19 03:27:16 PM EDT > left Natividad Harvey 09/19/2024 10:49:58 AM EDT > Patient agreed to start Metformin. Sent medication to pharmacyThis lab was reviewed by Natividad Gonzalez on 09/19/2024 at 10:50 AM EDT Clinical Notes: stable on labs, monitor??9.?Dermatitis? Clinical Notes: this is an unusual place for a fungal infection...rec trial of low potency HC creamOTC BID for 7-14 days, avoiding the eyes??10.?Carotid stenosis, bilateral? Clinical Notes: stable on imaging this year?? * Procedure Codes: G 0439 ANNUAL WELLNESS VST; PPS SUBSQT VST, M1371 [facility] rec gsa<7, 1123F ADVANCED DIRECTIVE - HAS A LIVING WILL, 3017F COLORECTAL [place] SCREEN DOC REV, G8705 BMI documented as normal, no follow up required., G8510 NEGATIVE SCREENING F/U NOT REQUIRED, G9903 Pt scrn tbco id as non user, G4160 Most recent systolic blood pressure < 140mmhg, G8754 Most recent diastolic blood pressure < 90mmhg, G9080 PATIENT NOT ELIG D/T ACTIVE DX HTN * Preventive Medicine: LAMAR Screening: F alls: Future screening for fall risks H ave you had two or more falls in the past year? N o, H ave you had any falls with injury in the past year? N o. Depression Screening: P HQ 2 F eeling down depressed or hopeless N o. Immunizations: i nfluenza H ave you had a flu shot since the most recent November 06 ? Y es. P neumonia vaccine: Status for Older Adults A re you up-to-date on your pneumonia vaccine? yes or no y es, Both Prevnar and Pneumovax. S hingrix D iscussed and will consider. C OVID C ompleted series. Screening / Special Tests: C olonoscopy 2 022. P SA a symptomatic. * Follow Up: 6 Months * * Sign off status: Completed true * Provider: NASRA Diop Date: 09/14/2024 Generated for Kim morris/Matthias/eTwilneritting on: 10/02/2024 01:02 PM EDT History and Physical Notes * Examination Category Sub-Category Detail Notes Category Not es General Examination Heart: RRR, No m/r/ g/h, Nl S1S2, No JVD, 2(+) symmetric pulses, No edema, Lungs: LCTAB, No wheezes, c rackles or rhonchi, Good air movement, Abdomen: Soft, NTND, No organ omegaly or peritoneal signs. Extremities: no clubbing, no tevin a, no foot lesions Skin: very mild erythema o carley the nasal bridge and extending just to the cheek on either side Neurologic Exam: Alert and oriented x 3 Peripheral pulses: normal (2+) posterio r tibial pulses bilaterally Chest: normal shape and exp ansion neck Supple, no thyromega ly, No LAD. No bruit heard on auscultation of carotids. General Pleasant and Cooper[place] tive, NAD on RA, Psych Normal Mood/Affect diabetic foot exam Visual exam of foot performed :: Yes
--- OUTSIDE RECORDS SUMMARY | 2024-09-19 04:47 | XMS_ITS ---
Author Organization [facility] PE D [facility] Address [address] [facility] [address] [place] [address] Care Team Providers Care Bank Reconciliator Name Role Phone Alana Nair Primary Care Provider REASON FOR VISIT order Encounters Encounter Location Date Provider Diagnosis [facility] [address] [address] 09/19/2024 Alana Nair Essential hypertensi on I10 [...] [address], [address], [place], [address], Progress Notes * James HUFF JR, JrDOB:[birth year] (74 yo M)Acc No.[id number]:09/19/2024 Patient: James LOPEZ JR, Jr :1950 A ge:74 Y S ex:Male Address:[facility] [address] [place], [address] Subjective: * Chief Complaints: * O rder [...] pre cert requiredPlease call daughterBetty with appt [phone] * * Procedure Codes: * true * Date: Generated for Kim morris/Matthias/Dominick on: 0 10/02/2024 01:03 PM EDT
--- NOTE | 2024-10-02 | MR_ITS ---
FINAL REPORT TECHNIQUE: Multiplanar and multisequence MR imaging was performed through the lumbar spine before and after contrast administration. CLINICAL HISTORY: lower back pain 18 ml prohance pain down left leg COMPARISON: None. FINDINGS: The vertebral bodies are normally aligned. There is mild chronic compression deformity of L4. Remaining vertebral body height is preserved. There is no acute bone marrow edema. No abnormal bone marrow enhancement. The cord terminates at L1. There is normal signal within the distal cord. There is no abnormal enhancement in the distal cord. There is no acute paraspinal abnormality. There is no loculated fluid collection. L1-L2: No focal disc herniation, central canal stenosis, or neural foraminal narrowing. L2-L3: Annular disc bulge with degenerative endplate changes and bilateral facet osteoarthropathy. Mild central stenosis and moderate bilateral foraminal narrowing. L3-L4: Annular disc bulge with degenerative endplate changes and facet osteoarthropathy. No central stenosis. Severe bilateral foraminal narrowing. L4-L5: Annular disc bulge with degenerative endplate change. There are postoperative changes from prior left laminectomy. No central canal stenosis. Severe left greater than right foraminal narrowing. There is enhancing scar tissue within the laminectomy tract and along the thecal sac. L5-S1: Annular disc bulge with degenerative endplate changes and bilateral facet osteoarthropathy. No central canal stenosis. Moderate to severe bilateral foraminal narrowing. IMPRESSION: 1. Postoperative changes at L4-5 with an annular disc bulge, degenerative endplate changes, and facet osteoarthropathy contributing to severe bilateral foraminal stenosis. Enhancing scar tissue along the surgical 2. Multilevel degenerative disc disease at the additional levels as detailed above for each level. Authenticated and ERN
--- OUTSIDE RECORDS SUMMARY | 2024-10-02 13:04 | XMS_ITS | Patient Health Record ---
Author Organization [facility] Address [address] [place] [address] Care Team Providers Care Database Administrator Name Role Phone Alana Nair Primary Care Provider Migration, Provider Unavailable Unavailable Allergies Allergen (clinical drug ingredient) Drug/Non Drug Allergy documented on EMR Reaction Allergy Type Onset Date Status DAIRY (uncoded) Unknown Allergy Acti ve Red meat RED MEAT (uncoded) rash Allergy A ctive Results Component Value Reference Range Notes CAROTID DUPLEX Reviewed date:06/19/2024 06:23:41 PM Interpretation: Performing Lab: Notes/Report: M-Complete Blood Count Auto Diff Reviewed date:03/24/2024 01:32:43 PM Interpretation: Performing Lab: Notes/Report: WBC 6.5 4.8-10.8 K/mm3 RBC 4.58 4.60-6.20 M/mm3 HGB 14.5 14.1-18.0 g/dL HCT 43.8 42.0-52.0 % MCV 95.6 80-94 fl MCH 31.7 27.0-31.2 pg MCHC 33.1 31.8-35.4 g/dL RDW 12.8 11.5-17.5 % PLT 143 142-424 K/mm3 MPV 12.7 7.4-10.4 fl NE% 61.9 37.0-80.0 % LY% 24.7 10-50 % MO% 9.4 1.7-9.3 % EO% 2.6 0.1-12.0 % BA% 0.9 0.1-2.0 % NE# 4.0 1.8-7.8 K/mm3 LY# 1.6 0.7-4.5 K/mm3 MO# 0.6 0.1-1.0 K/mm3 EO# 0.2 0.0-0.4 K/mm3 BA# 0.1 0-0.2 K/mm3 M-Comprehensive Metabolic Pa hari Reviewed date:03/24/2024 02:25:51 PM Interpretation: Performing Lab: Notes/Report: NA 142 136-145 mmol/L K 4.1 3.5-5.1 mmoL/L CL 105 98-107 mmol/L CO2 32 22.0-30.0 mmol/L GAP 9.1 5-15 mEq/L BUN 30 9-20 mg/dl CREATT 1.00 0.66-1.25 mg/dl GFRAA 88 >60 ML/MIN EGFR 73 >60 ml/min GLU 121 74-100 mg/dl CA 9.5 8.4-10.2 mg/dl BILIT 2.2 0.2-1.3 mg/dl AST 38 17-59 U/L ALT 48 12-78 U/L TP 6.2 6.3-8.2 g/dl ALB 4.1 3.5-5.0 g/dl GLOB 2.1 1.3-3.2 g/dL AGRATIO 2.0 1.1-1.8 ALP 78 38-126 U/L M-Hemoglobin A1C Reviewed date:03/24/2024 01:33:22 PM Interpretation: Performing Lab: Notes/Report: HGBA1C 6.3 4.0-6.0 % < 6% Non-Diabetic Level < 7% Controlled Diabetic Level > 8% Poorly Controlled Diabetic Level M-Lipid Panel Reviewed date:03/24/2024 01:33:27 PM Interpretation: Performing Lab: Notes/Report: Patient Fasting? Y TRIG 114 30-150 mg/dl CHOL 140 140-200 mg/dl DLDL 70.56 100-129 mg/dL VLDL 23 0-40 mg/dL HDL 44 40-60 mg/dl CHLHDL 3.2 1-3.5 M-Thyroid Stimulating Hormon e Reviewed date:03/24/2024 01:32:49 PM Interpretation: Performing Lab: Notes/Report: TSH 2.08 0.465-4.68 uIU/mL M-Complete Blood Count Auto Diff Reviewed date:11/17/2023 09:12:36 AM Interpretation: Performing Lab: Notes/Report: WBC 5.7 4.8-10.8 K/mm3 RBC 4.60 4.60-6.20 M/mm3 HGB 14.7 14.1-18.0 g/dL HCT 45.9 42.0-52.0 % MCV 99.8 80-94 fl MCH 32.1 27.0-31.2 pg MCHC 32.1 31.8-35.4 g/dL RDW 13.7 11.5-17.5 % PLT 149 142-424 K/mm3 MPV 10.7 7.4-10.4 fl NE% 55.1 37.0-80.0 % LY% 31.9 10-50 % MO% 8.7 1.7-9.3 % EO% 2.9 0.1-12.0 % BA% 1.3 0.1-2.0 % NE# 3.1 1.8-7.8 K/mm3 LY# 1.8 0.7-4.5 K/mm3 MO# 0.5 0.1-1.0 K/mm3 EO# 0.2 0.0-0.4 K/mm3 BA# 0.1 0-0.2 K/mm3 M-Comprehensive Metabolic Pa hari Reviewed date:11/17/2023 09:12:36 AM Interpretation: Performing Lab: Notes/Report: NA 143 136-145 mmol/L K 4.3 3.5-5.1 mmoL/L CL 108 98-107 mmol/L CO2 33 22.0-30.0 mmol/L GAP 6.3 5-15 mEq/L BUN 27 9-20 mg/dl CREATT 1.00 0.66-1.25 mg/dl GFRAA 88 >60 ML/MIN EGFR 73 >60 ml/min GLU 137 74-100 mg/dl CA 9.1 8.4-10.2 mg/dl BILIT 2.4 0.2-1.3 mg/dl AST 52 17-59 U/L ALT 66 12-78 U/L TP 6.4 6.3-8.2 g/dl ALB 3.9 3.5-5.0 g/dl GLOB 2.5 1.3-3.2 g/dL AGRATIO 1.6 1.1-1.8 ALP 72 38-126 U/L H-VITB12 Reviewed date:03/24/2024 01:32:17 PM Interpretation: Performing Lab: Notes/Report: VITB12 884 239-931 pg/mL H-MALBCREA Reviewed date:03/24/2024 01:32:31 PM Interpretation: Performing Lab: Notes/Report: Units: mg/g creat Normal: 0 - 29 Moderately Increased: 30 - 300 Severely Increased: >300 UCREAT 280 Not Estab. mg/dL Random urine reference range not established. 24 hour urine samples recommended. MICROALB 22.700 0-16.7 mg/L MALBCREAT 8.1 HEMOGLOBIN A1c (496) Reviewed date:09/19/2024 10:50:51 AM Interpretation: Performing Lab:[facility] [employer] [address] [employer], [id number] Cricket Polo Notes/Report: NON-FASTING; NON-FASTING; NON-FASTING; NON-FASTING FASTING:YES FASTING: YES HEMOGLOBIN A1c 7.0 <5.7 % other considerations. Currently, no consensus exists regarding use of hemoglobin A1c for diagnosis of diabetes for children. For someone without known diabetes, a hemoglobin [...] duration of diabetes, age, comorbid conditions, and CBC (INCLUDES DIFF/PLT) (639 9) Reviewed date:09/19/2024 10:50:51 AM Interpretation: Performing Lab:[facility] [employer] [id number] Speak With [employer], [id number] Cricket Polo Notes/Report: NON-FASTING; NON-FASTING; NON-FASTING; NON-FASTING [...] MPV 13.0 7.5-12.5 fL ABSOLUTE NEUTROPHILS 2686 2927-9822 cells/uL ABSOLUTE LYMPHOCYTES 7221 263-3035 cells/uL ABSOLUTE MONOCYTES 405 200-950 cells/uL ABSOLUTE EOSINOPHILS 110 15-500 cells/uL ABSOLUTE BASOPHILS 32 0-200 cells/uL NEUTROPHILS 58.4 LYMPHOCYTES 29.7 MONOCYTES 8.8 EOSINOPHILS 2.4 BASOPHILS 0.7 COMPREHENSIVE METABOLIC PANE L (36205) Reviewed date:09/19/2024 10:50:51 AM Interpretation: Performing Lab:CB, [facility] [address] [facility] [id number] Cricket Polo Notes/Report: NON-FASTING; NON-FASTING; NON-FASTING; NON-FASTING [...] 21 10-35 U/L ALT 25 9-46 U/L LIPID PANEL, STANDARD (7600) Reviewed date:09/19/2024 10:50:51 AM Interpretation: Performing Lab:[facility] [address], [place] [id number] Cricket [place]o Notes/Report: NON-FASTING; NON-FASTING; NON-FASTING; NON-FASTING [...] LDL-C. Michael GOFF et al. SALVADOR. 2013;310(19): 5119-0597 (http://education.[employer].com/faq/CZD379) CHOL/HDLC RATIO 3.0 <5.0 (calc) NON HDL CHOLESTEROL 91 <130 mg/dL (calc) For patients with diabetes plus 1 major ASCVD risk factor, treating to a non-HDL-C goal of <100 mg/dL (LDL-C of <70 mg/dL) is considered a therapeutic option. Reason For Referral Reason [facility] Diagnosis 1 Hip arthritis (M16.1 0) Referral Organization [facility] Referring Provider First Name Alana Referring Provider Last Name Joanie Referring Provider [facility]erred Organization Referrals Referred Address [address] [place],[address] Referred Provider Specialty Orthopedic S linda General Notes Kaya Beach 2023 09:29:45 AM >Referral placed at [facility]- They will review and call patient to schedule appt.Yong Nickie 10/05/2023 09:35:10 AM >Referral also place at [facility] - through [facility] for the [facility] location- Canceled Referral Priority Routine Reason Dr Frederick for left h ip arthritis Referral Organization [facility] Referring Provider First Name Alana Referring Provider Last Name Joanie Referring Provider [facility] ctice Referred Provider Specialty Orthopedic S urgery General Notes Alana Nair 10:13:11 PM > I know you sent referrals elsewhere but after speaking with daughter, would like to see Dr Frederick in [facility] or Yong Ballesteros Nickie 10/06/2023 03:38:14 PM >Sending to [facility] Referral Priority Routine Reason Dr Floyd, screening c olonoscopy Diagnosis 1 History of colon danie yps (Z86.0100) Referral Organization [facility] Referring Provider First Name Alana Referring Provider Last Name Joanie Referring Provider [facility] ctice Referred Organization [facility] Referred Address [address] [place], [place],[address], Referred Provider Specialty General Surg blayne General Notes Kaya Beach 2024 03:40:57 PM >stop Plavix 5 days before colonoscopy per Yong Blanton Nickie 03/27/2024 03:44:20 PM >letter mailed Referral Priority Routine Referral Appointment Date 04/18/2024 Reason Carotid Doppler - HM H STAT Diagnosis 1 Bilateral carotid ar gertrudis stenosis (I65.23) Referral Organization [facility] Referring Provider First Name Alana Referring Provider Last Name Joanie Referring Provider [facility] ctice Referred Organization [facility] Referred Address [address] [place], [place],[address], Referred Provider Specialty Diagnostic R adiology Referral Priority Routine Referral Appointment Date 06/16/2024 Reason Cardiac Clearance ne eded for back surgery on Wednesday Diagnosis 1 Bilateral carotid ar gertrudis stenosis (I65.23) Referral Organization [facility] Referring Provider First Name Alana Referring Provider Last Name Joanie Referring Provider [facility] ctice Referred Organization [facility] Referred Address [address] [place], [place],[address],[place] Referred Provider Specialty Cardiovascul ar Disease Referral Priority Routine Referral Appointment Date 06/19/2024 Reason [facility] - please contac t daughter, Betty Phan, with appt information Diagnosis 1 Inverted T wave (R94 .31) Diagnosis 2 Essential hypertensi on (I10) Diagnosis 3 Type 2 diabetes eriberto itus with other diabetic kidney complication (E11.29) Referral Organization [facility] Referring Provider First Name Alana Referring Provider Last Name Joanie Referring Provider Speciality [facility] Notes Anil Yoselynreny Lin 08:54:35 AM > faxed and [facility] will call Referral Priority Routine Medications Medication SIG (Take, Route, Frequency, Duration) Notes Start Date End Date Status Atenolol 25 MG 1 tab(s) orally once a day; Duration: 90 days Active Diclofenac Sodium 75 MG 1 tab(s) orally once a day; Duration: 90 days Active Rosuvastatin Calcium 40 MG TAKE 1 TABLET BY MOUTH ONCE DAILY; Duration: 90 Active Losartan Potassium 25 MG TAKE 1 TABLET BY MOUTH ONCE DAILY; Duration: 90 Active Clopidogrel Bisulfate 75 MG 1 tab(s) orally once a day; Duration: 90 Active Omeprazole 20 MG 1 cap(s) orally once a day; Duration: 90 days 04/04/2024 Active Diclofenac Sodium 1 % 2 gram applied topically 4 times a day; Duration: 10 days prn 05/11/2022 Active MULTIVITAMIN WITH MINERALS THERAPEUTIC MULTIPLE VITAMINS WITH MINERALS 1 TAB(S) ORALLY ONCE A DAY; Duration: 30 DAY(S) *Please review for potential replacement for e-prescription and drug interaction check* Active metFORMIN HCl 500 MG 1 tablet with a meal Orally Once a day; Duration: 30 days 09/19/2024 Active TEST STRIPS AND LANCETS NA FOR TWICE WEEKLY FSBS TESTING NA TWICE WEEKLY; Duration: 30 DAYS *Please review for potential replacement for e-prescription and drug interaction check* 04/12/2019 Active Calcium Carbonate 600 MG 1 TAB CHEWED ONCE A DAY *Please review and pick correct strength-formulatio n from [employer] options. If intended option is not shown, discontinue and re-order from Quick Search* Active Aspirin 81 MG 1 tab(s) orally once a day; Duration: 90 days Active Immunizations Vaccine Route Administration Date Status Comme nts Prevnar PCV-13 (Pneumococcal conjugate 13) IM Intramuscular 09/24/2015 Administered Pneumovax 23 IM Intramuscular 09/19/2014 Administered Fluzone High Dose IM Intramuscular 12/23/2017 Administered Fluzone High Dose IM Intramuscular 03/19/2022 Administered Adacel (Tdap) IM Intramuscular 09/18/2013 Administered Problems Problem Type SNOMED Code ICD Code Onset Dates Problem Status W/U Status Risk Notes Problem Diabetic renal disease (964777563) Type 2 diabetes mellitus with other diabetic kidney complication (E11.29) Active confirmed Problem Hyperlipidemia (90992879) Hyperlipidemia, unspecified (E78.5) Active confirmed Problem Atopic neurodermatitis (577450390) Atopic neurodermatitis (L20.81) Active confirmed Problem Acquired trigger finger (3703790) Trigger finger, right middle finger (M65.331) Active confirmed Problem Essential hypertension (03918360) Essential hypertension (I10) Active confirmed Problem Body mass index 25-29 - overweight (989974973) BMI 25.0-25.9,adult (Z68.25) Active confirmed Problem Right carotid artery stenosis (633459892220507) Carotid stenosis, right (I65.21) Active confirmed Problem Allergic rhinitis (01546120) Chronic allergic rhinitis (J30.9) Active confirmed Problem Shoulder joint pain (738805349) Right anterior shoulder pain (M25.511) Active confirmed Problem Thrombocytopenia (641762085) Thrombocytopenia (D69.6) Active confirmed Problem Constipation (11146921) Constipation, unspecified constipation type (K59.00) Active confirmed Problem Gastroesophageal reflux disease (414437051) Gastroesophageal reflux disease, esophagitis presence not specified (K21.9) Active confirmed Problem Arthropathy (517512658) Arthropathy, 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) Active confirmed Problem Atherosclerosis (75360220) Atherosclerosis (I70.90) Active confirmed Problem Occlusion and stenosis of multiple and bilateral cerebral arteries (573485039) Carotid stenosis, bilateral (I65.23) Active confirmed Problem Body mass index 25-29 - overweight (711513620) BMI 26.0-26.9,adult (Z68.26) Active confirmed Problem Hyperbilirubinemia (56086921) Hyperbilirubinemia (E80.6) Active confirmed Problem Occlusion and stenosis of multiple and bilateral cerebral arteries (209887197) Bilateral carotid artery stenosis (I65.23) Active confirmed Problem Chronic anemia (322208019) Chronic anemia (D64.9) Active confirmed Problem Localized, primary osteoarthritis of the pelvic region and thigh (723118621) Primary osteoarthritis of left hip (M16.12) Active confirmed Problem Food allergy (843646946) Allergy to alpha-gal (Z91.018) Active confirmed Problem Arthritis of hip (51950797) Hip arthritis (M16.10) Active confirmed Vital Signs Heart Rate 72 /min 09/14/2024 Temperature 97.6 degrees Fahrenheit 09/14/2024 Blood pressure diastolic 84 mm Hg 09/14/2024 Height 6 ft 2 in in 09/14/2024 Blood pressure systolic 148 mm Hg 09/14/2024 Weight 192 lbs 09/14/2024 BMI 24.65 kg/m2 09/14/2024 Encounters Encounter Location Date Provider Diagnosis [facility] [address] [place] [address] 06/10/2024 Provider Migration [facility] [address] [address] 03/22/2024 Alana Nair Hyperlipidemia, unspecified E78.5 ; Essential hypertension I10 ; Type 2 diabetes mellitus with other diabetic kidney complication E11.29 ; Chronic allergic rhinitis J30.9 ; Pain in left hip M25.552 ; Chronic anemia D64.9 ; Constipation, unspecified constipation type K59.00 ; Thrombocytopenia D69.6 ; Weight loss R63.4 and History of colon polyps Z86.0100 [facility] [address] [place], [place] [address] 09/14/2024 Alana Nair Essential hypertensi on I10 ; Medicare annual wellness visit, subsequent Z00.00 ; Hyperlipidemia, unspecified E78.5 ; Type 2 diabetes mellitus with other diabetic kidney complication E11.29 ; Chronic allergic rhinitis J30.9 ; Chronic anemia D64.9 ; Constipation, unspecified constipation type K59.00 ; Thrombocytopenia D69.6 ; Dermatitis L30.9 and Carotid stenosis, bilateral I65.23 [facility] [address] [address] 09/29/2024 Alana Nair [facility] [address] [place] [address] 11/15/2023 Alana Nair Thrombocytopenia D69 .6 [facility] [address] [place] [address] 11/29/2023 Alana Joanie Essential hypertensi on I10 [facility] [address] [place] [address] 03/27/2024 Alana Joanie [facility] [place] [address] [facility] [address] [place] [address] 04/03/2024 Alana Joanie [facility] [place] [address] [place] [address] 04/04/2024 Alana Joanie [facility] [address] [place] [address] 06/15/2024 Alana Joanie [facility] [address] [place] [address] 06/15/2024 Alana Joanie Bilateral carotid ar gertrudis stenosis I65.23 [facility] [address] [place] [address] 09/19/2024 Alana Joanie Essential hypertensi on I10 and Inverted T wave R94.31 [facility] [address] [place] [address] 09/19/2024 Alana Joanie [facility] [address] [place] [address] 09/21/2024 Alana Joanie Assessments Encounter Date Diagnosis (ICD Code) Assessment Notes Treatment Notes Treatment Clinical Notes Section Notes 11/15/2023 Thrombocytopenia (ICD-10 - D69.6) 11/29/2023 Essential hypertension (ICD-10 - I10) 03/22/2024 Hyperlipidemia, unspecified (ICD-10 - E78.5) Ordered labs to monitor lipid levels. Will review and make changes as needed. 03/22/2024 Essential hypertension (ICD-10 - I10) Patient's blood pressure remains well controlled. No medication changes at this time. 06/15/2024 Bilateral carotid artery stenosis (ICD-10 - I65.23) 09/14/2024 Essential hypertension (ICD-10 - I10) Patient's blood pressure remains well controlled. No medication changes at this time. He did see cardiology preoperatively who suggested possible stress test but not until after surgery. I encouraged him to contact them to arrange for FU 09/14/2024 Medicare annual wellness visit, subsequent (ICD-10 - Z00.00) wellness for age reviewed 09/19/2024 Essential hypertension (ICD-10 - I10) 09/19/2024 Inverted T wave (ICD-10 - R94.31) 09/14/2024 Hyperlipidemia, unspecified (ICD-10 - E78.5) Ordered labs to monitor lipid levels. Will review and make changes as needed. 03/22/2024 Type 2 diabetes mellitus with other diabetic [...] Will review and make changes as needed. 03/22/2024 Chronic allergic rhinitis (ICD-10 - J30.9) No new complaints; no changes at this time. 03/22/2024 Pain in left hip (ICD-10 - M25.552) Patient reports L hip pain that has worsened recently. Ordered Xray to evaluate cause and arthritis status. 09/14/2024 Chronic allergic rhinitis (ICD-10 - J30.9) No new complaints; no changes at this time. 09/14/2024 Chronic anemia (ICD-10 - D64.9) 03/22/2024 Chronic anemia (ICD-10 - D64.9) 03/22/2024 Constipation, unspecified constipation type (ICD-10 - K59.00) 09/14/2024 Constipation, unspecified constipation type (ICD-10 - K59.00) imprpoved 09/14/2024 Thrombocytopenia (ICD-10 - D69.6) stable on labs, monitor 03/22/2024 Thrombocytopenia (ICD-10 - D69.6) 03/22/2024 Weight loss (ICD-10 - R63.4) 03/22/2024 History of colon polyps (ICD-10 - Z86.0100) 09/14/2024 Dermatitis (ICD-10 - L30.9) this is an unusual place for a fungal infection... rec trial of low potency HC cream OTC BID for 7-14 days, avoiding the eyes 09/14/2024 Carotid stenosis, bilateral (ICD-10 - I65.23) stable on imaging this year Plan Of Treatment Pending Test Test Name Order Date X ray : Hip and thigh, Right 09/13/2012 Glucose (in house) 09/06/2012 Physical Therapy 12/06/2012 H-CBC with AUTO DIFF 09/21/2016 H-VITAMIN B12 09/21/2016 H-VITAMIN B12 09/25/2015 H-FOLATE, SERUM 09/25/2015 H-FERRITIN 09/25/2015 H-CMP 09/07/2012 H-CMP 09/21/2016 H-CMP 05/17/2013 H-MAGNESIUM 09/21/2016 H-LIPID PANEL 09/21/2016 H-LIPID PANEL 03/25/2017 H-LIPID PANEL 09/07/2012 H-LIPID PANEL 05/17/2013 H-IRON 09/25/2015 H-HGBA1C 09/07/2012 H-HGBA1C 09/21/2016 H-HGBA1C 05/17/2013 H-PSA SCREEN 09/21/2016 H-PSA SCREEN 05/17/2013 H-TSH 03/25/2017 H-MICROALBUMIN URINE 03/26/2016 H-MICROALBUMIN URINE 05/17/2013 M-Complete Blood Count Auto Diff 019 M-Complete Blood Count Auto Diff 019 M-Complete Blood Count Man Dif 4 M-Comprehensive Metabolic Panel 10/25/19 19 M-Comprehensive Metabolic Panel 04/25/19 19 M-Basic Metabolic Panel 12/23/2017 M-Hemoglobin A1C 04/25/2018 M-Hemoglobin A1C 10/24/2018 M-Lipid Panel 10/24/2018 M-Lipid Panel 04/25/2018 M-Peripheral Smear Review 09/24/2023 M-Vitamin B12 03/22/2024 M-Microalb/Creat Ratio, Randm Ur 025 M-Microalb/Creat Ratio, Rand Ur 021 CTA : Cardiac 09/19/2024 Next Appt Details Provider Name:Alana Moore Zonia zamudio, 03/19/2025 08:00:00 AM, [address], [place], [address], Insurance Providers Payer Name Payer Address Payer Phone Subscriber Number Group Number Insured Name Patient Relationship to Insured Coverage Start Date Coverage End Date [place] [address] [place] [place] [address] [id number] Refugio James LAFLEUR Self - patient is the insured [facility] [address] [place] [address] [id number] Plan F Refugio LAFLEUR James Self - patient is the insured [address] [employer] [address] [place] [address] ACL Jaems Huff JR Self - patient is the insured Medical (General) History Medical History History ICD Code HTN Diabetes, type II Hyperlipidemia Colonoscopy 2013, Dr Bowles; 2018 Dr Floyd; 2020 Dr Floyd, one tubular adenoma eczema EGD 1998 with erosive duoden itis and nonerosive gastritis, on chronic PPI therapy Left hip osteoarthritis Alpha-gal allergy, followed by Dr Martinez Carotid stenosis, R > L Surgical History Surgery Date(Month/Year) Lt foot surgery 1992 Carpal Tunnel and Trigger Finger-rt hand Basal Cell Carcinoma-nose 2006 Back Surgery 06/2024 Hospitalization History Reason Date(Month/Year) episodes of syncope abscessed tooth-infection throughout bod y
--- OUTSIDE RECORDS SUMMARY | 2024-10-02 13:05 | XMS_ITS | Clinical Summary ---
Author Organization Healthcare Address [address] [place] [address] Care Team Providers Care Seconds Grader Name Role Phone Silas Horan MD Primary Care Provider Allergies No known active allergies Medications ROSUVASTATIN CALCIUM PO 09/07/2017 Active clopidogrel (Plavix) 75 MG tablet 11/25/2020 Active atenolol (Tenormin) 50 MG tablet Take 25 mg by mouth 1 (one) time each day. 10/25/2020 Active losartan (Cozaar) 25 MG tablet 11/25/2020 Active Aspirin Buf,CaCarb-MgCar b-MgO, 81 MG tablet 09/07/2017 Active diclofenac (Voltaren) 75 MG EC tablet Take 75 mg by mouth 2 (two) times a day. 08/27/2020 Active montelukast (Singulair) 10 MG tablet Take 10 mg by mouth 1 (one) time each day. 09/25/2020 Active Multiple Vitamin (multivitamin) tablet Take 1 tablet by mouth 1 (one) time each day. Active levocetirizine (Xyzal) 5 MG tablet Take by mouth 1 (one) time each day in the evening. Active famotidine (Pepcid) 20 MG tablet Take by mouth. Active Active Problems No known active problems Family History Medical History Relation Name Comments Cardiac disorder Other 1 Diabetes Other 2 Other cancer Other 3 Relation Name Status Comments Other 1 Other 2 Other 3 Social History Tobacco Use Types Packs/Day Years Used Date Smoking Tobacco: Former Smokeless Tobacco: Current Chew Alcohol Use Standard Drinks/Week Comments Not Currently 0 (1 standard drink = 0.6 oz pur e alcohol) Sex and Gender Information Value Date Recorded Sex Assigned at Not on file Legal Sex Male 8:40 PM EDT Gender Identity Not on file Sexual Orientation Not on file Last Filed Vital Signs Vital Sign Reading Time Taken Comments Blood Pressure 129/73 11/25/2020 10:03 AM EDT Pulse 56 11/25/2020 10:03 AM EDT Temperature - - Respiratory Rate - - Oxygen Saturation - - Inhaled Oxygen Concentration - - Weight 94.8 kg (209 lb) 11/25/2020 10:03 AM EDT Height 188 cm (6' 2 ) 11/25/2020 10:03 AM EDT Body Mass Index 26.83 11/25/2020 10:03 AM EDT Plan of Treatment Health Maintenance Due Date Last Done Comments [facility]-Depression Screening 1949 [facility]-/Child/Adol SDOH Screenings 1949 [facility]- SDOH Screenings 1967 [facility]-Adult SDOH Screenings 1967 [facility]-DTaP,Tdap,and Td Vaccine s (1 - Tdap) 02/22/1968 CT Colonography 1994 Colonoscopy 1994 FIT-DNA 1994 FIT 1994 FOBT 1994 Sigmoidoscopy 1994 [facility]-Colorectal Cancer Screening 1994 [facility]-Pneumococcal Vaccine: 50 + Years (1 of 1 - PCV) 1999 [facility]-Zoster Vaccines (1 of 2) 1999 [id number] Vaccine (1 - 2023- season) 2023 [facility]-RSV Vaccine: 60+ Years o r (1 - 1-dose 75+ series) 02/22/2024 [facility]-Influenza Vaccine (#1) 11/06/202412/23, 11/30/2016, 12/28/2011 HPV Vaccines Aged Out No longer eligi ble based on patient's age to complete this topic [facility]-HIB Vaccines Aged Out No longer e ligible based on patient's age to complete this topic [facility]-Hepatitis A Vaccines Aged Out No longer eligible based on patient's age to complete this topic [facility]-IPV Vaccines Aged Out No longer e ligible based on patient's age to complete this topic [facility]-Rotavirus Vaccines Aged Out No lo nger eligible based on patient's age to complete this topic Insurance MEDICARE [facility] Care Teams Seconds Grader Relationship Specialty Start Date End Date Silas Horan MD [address] [place], [place] [address] PCP - General 07/19/20
--- OUTSIDE RECORDS SUMMARY | 2024-10-02 13:05 | XMS_ITS | Encounter Summary ---
Author Organization Healthcare Address [address] [place] [address] Care Team Providers Care Personal Lines Advisor Name Role Phone Silas Horan MD Primary Care Provider [phone] Reason for Referral * Consultation (Routine) - Authorized Specialty Diagnoses / Procedures Referred By Destini warren Referred To Contact Orthopaedic Surgery Diagnoses Degenerative joint disease of pelvic region Alana Nair APRN [address] [address] Phone: tel: fax: [facility] & [address] [address] Phone: tel: fax: Referral ID Status Reason Start Date Expiration Date Visits Requested Visits Authorized [id number] Authorized Specialty Services Required 10/05/2023 04/05/2025 1 1 Encounter Details Date Type Department Care Team (Latest Contact Info) Description 10/05/2023 Community [facility] Community Practice [address] [place] [address] Alana Nair APRN [address] [place] [id number] Degenerative joint disease of pelvic region (Primary Dx) Social History Tobacco Use Types Packs/Day Years Used Date Smoking Tobacco: Former Smokeless Tobacco: Current Chew Alcohol Use Standard Drinks/Week Comments Not Currently 0 (1 standard drink = 0.6 oz pur e alcohol) Sex and Gender Information Value Date Recorded Sex Assigned at Not on file Legal Sex Male 8:40 PM EDT Gender Identity Not on file Sexual Orientation Not on file documented as of this encounter Plan of Treatment Scheduled Referrals Name Type Priority Associated Diagnoses Order Schedule Ambulatory referral to General Orthopaedics Outpatient Referral Routine Degenerative joint disease of pelvic region Ordered: 10/05/2023 documented as of this encounter Visit Diagnoses Diagnosis Degenerative joint disease of pelvic region- Primary Osteoarthrosis, unspecified whether generalized or localized, pelvic region and thigh documented in this encounter Care Teams Personal Lines Advisor Relationship Specialty Start Date End Date Silas Horan MD [address] [place] [address] PCP - General 07/19/20 documented as of this encounter
[2024-10-02] MEDS: SODIUM CHLORIDE 0.9% 10ML SYR (RAD ONLY) 10 ML IV (14:30)
[2024-10-02] MEDS: GADOTERIDOL INJ 20ML SYRINGE 18 ML IV (14:30)
== END 2024-10-02 23:59 | disposition home or self-care (01) ==
LOC: RAD 12:56
PROVIDERS: PCP Internal Medicine Adolescent Medicine; Visit Provider Orthopaedic Surgery
DX: M47.26 Other spondylosis with radiculopathy, lumbar region (principal); M51.16 Intervertebral disc disorders with radiculopathy, lumbar region; M99.73 Connective tissue and disc stenosis of intervertebral foramina of lumbar region; Z98.890 Other specified postprocedural states
CPT/HCPCS: 72158; A9576

== ENCOUNTER 2024-10-06 08:52 | Outpatient (CLI) | payer MEDICARE, SELFPAY ==
--- OUTSIDE RECORDS SUMMARY | 2024-09-14 04:15 | XMS_ITS ---
Author Organization [facility] PE D [facility] Address [address] [place] [address] Care Team Providers Care Farmworker Bulbs Name Role Phone Alana Nair Primary Care Provider Allergies Allergen (clinical drug ingredient) Drug/Non Drug Allergy documented on EMR Reaction Allergy Type Onset Date Status DAIRY (uncoded) Unknown Allergy Acti ve Red meat RED MEAT (uncoded) rash Allergy A ctive Results Component Value Reference Range Notes LIPID PANEL, STANDARD (7600) Reviewed date:09/19/2024 10:50:51 AM Interpretation: Performing Lab:VIL[facility] Lmyt7689 [facility] ClinicLqouFF[address] Cricket Polo Notes/Report: NON-FASTING; NON-FASTING; NON-FASTING; NON-FASTING [...] LDL-C. Michael GOFF et al. SALVADOR. 2013;310(19): 4724-7158 (http://education.[employer].com/faq/RAN033) CHOL/HDLC RATIO 3.0 <5.0 (calc) NON HDL CHOLESTEROL 91 <130 mg/dL (calc) For patients with diabetes plus 1 major ASCVD risk factor, treating to a non-HDL-C goal of <100 mg/dL (LDL-C of <70 mg/dL) is considered a therapeutic option. COMPREHENSIVE METABOLIC PANCourt Moore (89449) Reviewed date:09/19/2024 10:50:51 AM Interpretation: Performing Lab:[facility] [employer], Q DesignGugdPD[address] Cricket Polo Notes/Report: NON-FASTING; NON-FASTING; NON-FASTING; NON-FASTING [...] Reviewed date:09/19/2024 10:50:51 AM Interpretation: Performing Lab:V[facility] Knbo1918 [employer], AudioscribeCsurWF[address] Cricket Polo Notes/Report: NON-FASTING; NON-FASTING; NON-FASTING; NON-FASTING [...] MPV 13.0 7.5-12.5 fL ABSOLUTE NEUTROPHILS 2686 4060-2443 cells/uL ABSOLUTE LYMPHOCYTES 8686 643-0887 cells/uL ABSOLUTE MONOCYTES 405 200-950 cells/uL ABSOLUTE EOSINOPHILS 110 15-500 cells/uL ABSOLUTE BASOPHILS 32 0-200 cells/uL NEUTROPHILS 58.4 LYMPHOCYTES 29.7 MONOCYTES 8.8 EOSINOPHILS 2.4 BASOPHILS 0.7 HEMOGLOBIN A1c (496) Reviewed date:09/19/2024 10:50:51 AM Interpretation: Performing Lab:VILMA, [facility] [place] [id number] Cricket Polo Notes/Report: NON-FASTING; NON-FASTING; NON-FASTING; NON-FASTING [...] review and pick correct strength-formulatio n from [employer]an options. If intended option is not shown, [...] Signs Temperature 97.6 degrees Fahrenheit 09/15/19 25 Blood pressure systolic 148 mm Hg 09/15/19 25 Blood pressure diastolic 84 mm Hg 025 Heart Rate 72 /min 09/14/2024 Height 6 ft 2 in in 09/14/2024 Weight 192 lbs 09/14/2024 BMI 24.65 kg/m2 09/14/2024 Encounters Encounter Location Date Provider Diagnosis [facility] [place] [address] [facility] [address] [place] [address] 09/14/2024 Alana Nair Essential hypertensi on I10 [...] [address], [address], [place], [address], Progress Notes * James PRITCHETT JR, JrDOB:[birth year] (74 yo M)Acc No.[id number]:09/14/2024 Progress Notes Patient: James LOPEZ JR, Jr Provider: NASRA Diop :1950 A ge:74 Y S ex:Male Date:09/14/2024 Address:[address] [place] [address], [place], [id number] Subjective: * Chief Complaints: * 1 . [...] with topical antifungal which was recommended by nuclear medicine supervisor DM, off of pharmacotherapy and A1C < [...] occasional beer. Travel outside [place]: no. 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 * Medications: T aking Calcium Carbonate [...] Y es. Assessment: * Assessment: [facility]. [facility], subsequent - Z00.00 (Primary) [...] 10:50 AM EDT ?LAB: COMPREHENSIVE METABOLIC PANEL (58730) (Collection Date & Time - 09/14/2024 09:04 [...] 10:50 AM EDT ?LAB: CBC (INCLUDES DIFF/PLT) (2656) (Collection Date & Time - 09/14/2024 09:04 [...] - % * A BSOLUTE NEUTROPHILS 2686 8726-5331 - cells/uL * L YMPHOCYTES 29.7 - % * A BSOLUTE LYMPHOCYTES 6082 715-9912 - cells/uL * M ONOCYTES 8.8 - [...] agreed to start Metformin. [facility] was reviewed by Natividad Gonzalez on 09/19/2024 at 10:50 AM EDT ?LAB: HEMOGLOBIN A1c (496) (Collection Date & Time - 09/14/2024 09:04 AM)* Value Reference Range H EMOGLOBIN A1c 7.0 H <5.7 - % * Santiago Guptamayra Swan 09/19/19 03:27:16 PM EDT > left Natividad Harvey 09/19/2024 10:49:58 AM EDT > Patient agreed to start Metformin. [facility] was reviewed by Natividad Gonzalez on [...] 10:50 AM EDT ?LAB: COMPREHENSIVE METABOLIC PANEL (00253) (Collection Date & Time - 09/14/2024 09:04 [...] - % * A BSOLUTE NEUTROPHILS 2686 4531-9244 - cells/uL * L YMPHOCYTES 29.7 - % * A BSOLUTE LYMPHOCYTES 4923 623-5753 - cells/uL * M ONOCYTES 8.8 - [...] 10:50 AM EDT ?LAB: COMPREHENSIVE METABOLIC PANEL (11599) (Collection Date & Time - 09/14/2024 09:04 [...] - % * A BSOLUTE NEUTROPHILS 2686 7659-7370 - cells/uL * L YMPHOCYTES 29.7 - % * A BSOLUTE LYMPHOCYTES 2903 854-2297 - cells/uL * M ONOCYTES 8.8 - [...] ANNUAL WELLNESS VST; PPS SUBSQT VST, M1371 [facility] rec gsa<7, 1123F ADVANCED DIRECTIVE - HAS A LIVING WILL, 3017F COLORECTAL [place] SCREEN DOC REV, G4695 BMI documented as normal, no follow up required., G8510 NEGATIVE SCREENING F/U NOT REQUIRED, G9903 Pt scrn tbco id as non user, G3512 Most recent systolic blood pressure < 140mmhg, G8754 Most recent diastolic blood pressure < 90mmhg, G9536 PATIENT NOT ELIG D/T ACTIVE DX HTN [...] Completed true * Provider: NASRA Diop Date: 0 09/14/2024 Generated for Kim morris/Matthias/eTwilneritting on: 10/06/2024 08:54 AM EDT History and Physical Notes * Examination [...]
--- OUTSIDE RECORDS SUMMARY | 2024-09-19 04:47 | XMS_ITS ---
Author Organization [facility] PE D [facility] Address [address] [facility] [address] [place] [address] Care Team Providers Care Ore Dressing Engineer Name Role Phone Alana Nair Primary Care Provider REASON FOR VISIT order Encounters Encounter Location Date Provider Diagnosis [facility] [address] [address] 09/19/2024 Alana Nair Essential hypertensi on I10 and Inverted T wave R94.31 Assessments Encounter Date Diagnosis (ICD Code) Assessment Notes Treatment Notes Treatment Clinical Notes Section Notes 09/19/2024 Essential hypertension (ICD-10 - I10) 09/19/2024 Inverted T wave (ICD-10 - R94.31) Plan Of Treatment Pending Test Test Name Order Date CTA : Cardiac 09/19/2024 Next Appt Details Provider Name:Alana Brar ce, 03/19/2025 08:00:00 AM, [address], [address], [place], [address], Progress Notes * James HUFF JR, JrDOB:[birth year] (74 yo M)Acc No.[id number]:09/19/2024 Patient: James LOPEZ JR, Jr :1950 A ge:74 Y S ex:Male Address:[facility] [place] [place], [address] Subjective: * Chief Complaints: * O rder * Medical History: * Surgical History: * Hospitalization/Major Diagno stic Procedure: * Medications: Objective: * Vitals: * Physical Examination: Assessment: * Assessment: 1. E ssential hypertension - I10 (Primary) 2 . I nverted T wave - R94.31? Plan: * Treatment: * 2.?Inverted T wave?Imaging: CTA : Cardiac* Daria Ma 09/19/2024 08:50:18 AM EDT > No pre cert requiredPlease call daughterBetty with appt [phone] * * Procedure Codes: * true * Date: Generated for Kim morris/Matthias/Thiernoitting on: 0 10/06/2024 08:54 AM EDT
--- OUTSIDE RECORDS SUMMARY | 2024-10-06 08:54 | XMS_ITS | Patient Health Record ---
Author Organization [facility] [place] Address [address] [place] [address] Care Team Providers Care News Internship Name Role Phone Alana Nair Primary Care Provider [phone] Migration, Provider Unavailable Unavailable Allergies Allergen (clinical drug ingredient) Drug/Non Drug Allergy documented on EMR Reaction Allergy Type Onset Date Status DAIRY (uncoded) Unknown Allergy Acti ve Red meat RED MEAT (uncoded) rash Allergy A ctive Results Component Value Reference Range Notes M-Comprehensive Metabolic Pa hari Reviewed date:03/24/2024 02:25:51 [...] AGRATIO 2.0 1.1-1.8 ALP 78 38-126 U/L M-Complete Blood Count Auto Diff Reviewed date:03/24/2024 [...] 0.2 0.0-0.4 K/mm3 BA# 0.1 0-0.2 K/mm3 M-Hemoglobin A1C Reviewed date:03/24/2024 01:33:22 PM Interpretation: [...] Performing Lab: Notes/Report: TSH 2.08 0.465-4.68 uIU/mL CAROTID DUPLEX Reviewed date:06/19/2024 06:23:41 PM Interpretation: Performing Lab: Notes/Report: M-Complete Blood Count Auto Diff Reviewed date:11/17/2023 [...] AGRATIO 1.6 1.1-1.8 ALP 72 38-126 U/L H-MALBCREA Reviewed date:03/24/2024 01:32:31 PM Interpretation: Performing Lab: Notes/Report: Units: mg/g creat Normal: 0 - 29 Moderately Increased: 30 - 300 Severely Increased: >300 UCREAT 280 Not Estab. mg/dL Random urine reference range not established. 24 hour urine samples recommended. MICROALB 22.700 0-16.7 mg/L MALBCREAT 8.1 H-VITB12 Reviewed date:03/24/2024 01:32:17 PM Interpretation: Performing Lab: Notes/Report: VITB12 884 239-931 pg/mL HEMOGLOBIN A1c (496) Reviewed date:09/19/2024 10:50:51 AM Interpretation: Performing Lab:[facility] [employer] [id number] [place], [employer] [id number] [place] Notes/Report: NON-FASTING; NON-FASTING; NON-FASTING; NON-FASTING [...] Reviewed date:09/19/2024 10:50:51 AM Interpretation: Performing Lab:[facility] [employer] [id number] [employer], [id number] [place] Notes/Report: NON-FASTING; NON-FASTING; NON-FASTING; NON-FASTING [...] MPV 13.0 7.5-12.5 fL ABSOLUTE NEUTROPHILS 2686 8766-3388 cells/uL ABSOLUTE LYMPHOCYTES 0974 809-1825 cells/uL ABSOLUTE MONOCYTES 405 200-950 cells/uL ABSOLUTE EOSINOPHILS 110 15-500 cells/uL ABSOLUTE BASOPHILS 32 0-200 cells/uL NEUTROPHILS 58.4 LYMPHOCYTES 29.7 MONOCYTES 8.8 EOSINOPHILS 2.4 BASOPHILS 0.7 [address]HENSIVE METABOLIC PANE L (13152) Reviewed date:09/19/2024 10:50:51 AM Interpretation: Performing Lab:CB, [facility] [id number] [facility], [facility] HospitalKthtNQ[address] [place] Notes/Report: NON-FASTING; NON-FASTING; NON-FASTING; NON-FASTING [...] Reviewed date:09/19/2024 10:50:51 AM Interpretation: Performing Lab:[facility] [address], [place] DiopHwmmLP[address] [place] Notes/Report: NON-FASTING; NON-FASTING; NON-FASTING; NON-FASTING FASTING:YES FASTING: YES CHOLESTEROL, TOTAL 137 <200 mg/dL HDL CHOLESTEROL 46 > OR = 40 mg/dL TRIGLYCERIDES 112 <150 mg/dL LDL-CHOLESTEROL 71 Reference range: <100 Desirable range <100 mg/dL for primary prevention; <70 mg/dL for patients with CHD or diabetic patients with > or = 2 CHD risk factors. LDL-C is now calculated using the Michael-Aylin calculation, which is a validated novel method providing better accuracy than the Friedewald equation in the estimation of LDL-C. Michael GOFF et al. SALVADOR. 2013;310(19): 7819-3340 (http://education.[employer].com/faq/BTG824) CHOL/HDLC RATIO 3.0 <5.0 (calc) NON HDL CHOLESTEROL 91 <130 mg/dL (calc) For patients with diabetes plus 1 major ASCVD risk factor, treating to a non-HDL-C goal of <100 mg/dL (LDL-C of <70 mg/dL) is considered a therapeutic option. Reason For Referral Reason Dr Floyd, screening c olonoscopy Diagnosis 1 History of colon danie yps (Z86.0100) Referral Organization [facility] Referring Provider First Name Alana Referring Provider Last Name Joanie Referring Provider Speciality Family Pra ctice Referred Organization [facility] Referred Address [address] [place] [facility] [address] [facility], [place], [place],[address], Referred Provider Specialty General Surg blayne General Notes Kaya Beach 2024 03:40:57 PM >stop Plavix 5 days before colonoscopy per Yong Blanton Nickie 03/27/2024 03:44:20 PM >letter mailed Referral Priority Routine Referral Appointment Date 04/18/2024 Reason Carotid Doppler - H STAT Diagnosis 1 Bilateral carotid ar gertrudis stenosis (I65.23) Referral Organization [facility] Referring Provider First Name Alana Referring Provider Last Name Joanie Referring Provider [facility] ctice Referred Organization [facility] Referred Address [address],[address], Referred Provider Specialty Diagnostic R adiology Referral Priority Routine Referral Appointment Date 06/16/2024 Reason Cardiac Clearance ne eded for back surgery on Wednesday Diagnosis 1 Bilateral carotid ar gertrudis stenosis (I65.23) Referral Organization [facility] Referring Provider First Name Alana Referring Provider Last Name Joanie Referring Provider [facility] Nery cttiara Referred Organization [facility] Referred Address [address] [facility] [address] [place], [place],[address], Referred Provider Specialty Cardiovascul ar Disease Referral Priority Routine Referral Appointment Date 06/19/2024 Reason CCTA - please contac t daughter, Betty Phan, with appt information Diagnosis 1 Inverted T wave (R94 .31) Diagnosis 2 Essential hypertensi on (I10) Diagnosis 3 Type 2 diabetes eriberto itus with other diabetic kidney complication (E11.29) Referral Organization [facility] Referring Provider First Name Alana Referring Provider Last Name Joanie Referring Provider [facility] Family Nery evangelista General Notes Daria Ma 08:54:35 AM > faxed and [facility] will call Referral Priority Routine Medications Medication SIG (Take, Route, Frequency, Duration) Notes Start Date End Date Status metFORMIN HCl 500 MG 1 tablet with a meal Orally Once a day; Duration: 30 days 09/19/2024 Active Triamcinolone Acetonide 0.1 % 1 application Externally twice a day; Duration: 10 days 10/02/2024 Active Atenolol 25 MG 1 tab(s) orally [...] for e-prescription and drug interaction check* Active TEST STRIPS AND LANCETS NA FOR TWICE WEEKLY FSBS TESTING NA TWICE WEEKLY; Duration: 30 DAYS *Please review for potential replacement for e-prescription and drug interaction check* 04/12/2019 Active Calcium Carbonate 600 MG 1 TAB CHEWED ONCE A DAY *Please review and pick correct strength-formulati on from mBlox options. If intended option is not shown, [...] Status Risk Notes Problem Diabetic renal disease (101900961) Type 2 diabetes mellitus with other diabetic kidney complication (E11.29) Active confirmed Problem Hyperlipidemia (77088998) Hyperlipidemia, unspecified (E78.5) Active confirmed Problem Atopic neurodermatitis (580610958) Atopic neurodermatitis (L20.81) Active confirmed Problem Acquired trigger finger (4197322) Trigger finger, right middle finger (M65.331) Active confirmed Problem Essential hypertension (40187680) Essential hypertension (I10) Active confirmed Problem Body mass index 25-29 - overweight (179346768) BMI 25.0-25.9,adult (Z68.25) Active confirmed Problem Right carotid artery stenosis (245551659498052) Carotid stenosis, right (I65.21) Active confirmed Problem Allergic rhinitis (03449684) Chronic allergic rhinitis (J30.9) Active confirmed Problem Shoulder joint pain (752866316) Right anterior shoulder pain (M25.511) Active confirmed Problem Thrombocytopenia (411733267) Thrombocytopenia (D69.6) Active confirmed Problem Constipation (73241755) Constipation, unspecified constipation type (K59.00) Active confirmed Problem Gastroesophageal reflux disease (317433436) Gastroesophageal reflux disease, esophagitis presence not specified (K21.9) Active confirmed Problem Arthropathy (339956318) Arthropathy, 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) Active confirmed Problem Atherosclerosis (20866314) Atherosclerosis (I70.90) Active confirmed Problem Occlusion and stenosis of multiple and bilateral cerebral arteries (405727736) Carotid stenosis, bilateral (I65.23) Active confirmed Problem Body mass index 25-29 - overweight (289558257) BMI 26.0-26.9,adult (Z68.26) Active confirmed Problem Hyperbilirubinemia (10196002) Hyperbilirubinemia (E80.6) Active confirmed Problem Occlusion and stenosis of multiple and bilateral cerebral arteries (896116144) Bilateral carotid artery stenosis (I65.23) Active confirmed Problem Chronic anemia (427722004) Chronic anemia (D64.9) Active confirmed Problem Localized, primary osteoarthritis of the pelvic region and thigh (558302865) Primary osteoarthritis of left hip (M16.12) Active confirmed Problem Food allergy (072016560) Allergy to alpha-gal (Z91.018) Active confirmed Problem Arthritis of hip (99659687) Hip arthritis (M16.10) Active confirmed Vital Signs Heart Rate 72 /min 09/14/2024 Temperature 97.6 degrees Fahrenheit 09/14/2024 Blood pressure diastolic 84 mm Hg 09/14/2024 Height 6 ft 2 in in 09/14/2024 Blood pressure systolic 148 mm Hg 09/14/2024 Weight 192 lbs 09/14/2024 BMI 24.65 kg/m2 09/14/2024 Encounters Encounter Location Date Provider Diagnosis [facility] [address] [place] [address] 06/10/2024 Provider Migration [facility] [address] [facility] [address] [place] [address] 03/22/2024 Alana Joanie Hyperlipidemia, unspecified E78.5 ; Essential hypertension I10 ; Type 2 diabetes mellitus with other diabetic kidney complication E11.29 ; Chronic allergic rhinitis J30.9 ; Pain in left hip M25.552 ; Chronic anemia D64.9 ; Constipation, unspecified constipation type K59.00 ; Thrombocytopenia D69.6 ; Weight loss R63.4 and History of colon polyps Z86.0100 [facility] [address] [place] [address] 09/14/2024 Alana Joanie Essential hypertensi on I10 ; Medicare annual wellness visit, subsequent Z00.00 ; Hyperlipidemia, unspecified E78.5 ; Type 2 diabetes mellitus with other diabetic kidney complication E11.29 ; Chronic allergic rhinitis J30.9 ; Chronic anemia D64.9 ; Constipation, unspecified constipation type K59.00 ; Thrombocytopenia D69.6 ; Dermatitis L30.9 and Carotid stenosis, bilateral I65.23 [facility] [address] [place] [address] 11/15/2023 Alana Joanie Thrombocytopenia D69 .6 [facility] [address] [facility] [address] [place] [address] 11/29/2023 Alana Joanie Essential hypertensi on I10 [facility] [address] [facility] [address] [place] [address] 03/27/2024 Alana Joanie [facility] [address] [place] [address] 04/03/2024 Alana Joanie [facility] [place] [address] [place] [address] 04/04/2024 Alana Joanie [facility] [address] [facility] [address] [place] [address] 06/15/2024 Alana Joanie [facility] [address] [facility] [address] [place] [address] 06/15/2024 Alana Joanie Bilateral carotid ar gertrudis stenosis I65.23 [facility] [address] [place] [address] 09/19/2024 Alana Joanie Essential hypertensi on I10 and Inverted T wave R94.31 [facility] [address] [facility] [address] [place] [address] 09/19/2024 Alana Joanie [facility] [address] [place] [address] 09/21/2024 [facility] [address] [facility] [address] [place] [address] 09/29/2024 Alana Nair Assessments Encounter Date Diagnosis (ICD Code) Assessment [...] 09/25/2015 H-FOLATE, SERUM 09/25/2015 H-FERRITIN 09/25/2015 H-CMP 05/17/2013 H-CMP 09/07/2012 H-CMP 09/21/2016 H-MAGNESIUM 09/21/2016 H-LIPID PANEL 03/25/2017 H-LIPID PANEL 09/07/2012 H-LIPID PANEL 05/17/2013 H-LIPID PANEL 09/21/2016 H-IRON 09/25/2015 H-HGBA1C 05/17/2013 H-HGBA1C 09/07/2012 H-HGBA1C 09/21/2016 H-PSA SCREEN 09/21/2016 H-PSA SCREEN 05/17/2013 H-TSH 03/25/2017 H-MICROALBUMIN URINE 03/26/2016 H-MICROALBUMIN URINE 05/17/2013 M-Complete Blood Count Auto Diff 019 M-Complete Blood Count Auto Diff 019 M-Complete Blood Count Man Dif 4 M-Comprehensive Metabolic Panel 10/25/19 M-Comprehensive Metabolic Panel 04/25/19 M-Basic Metabolic Panel 12/23/2017 M-Hemoglobin A1C 04/25/2018 M-Hemoglobin A1C 10/24/2018 M-Lipid Panel 10/24/2018 M-Lipid Panel 04/25/2018 M-Peripheral Smear Review 09/24/2023 M-Vitamin B12 03/22/2024 M-Microalb/Creat Ratio, Randm Ur 025 M-Microalb/Creat Ratio, Rand Ur 021 CTA : Cardiac 09/19/2024 Next Appt Details Provider Name:Alana Brar ce, 03/19/2025 08:00:00 AM, [address], [place], [address], Insurance Providers Payer Name Payer Address Payer Phone Subscriber Number Group Number Insured Name Patient Relationship to Insured Coverage Start Date Coverage End Date MEDICARE [place] [address] [place] [place] [address] [id number] James Huff JR Self - patient is the insured [facility] [address] [place] [id number] Plan F James Huff JR Self - patient is the insured 6 [employer] [address] [place] [address] [address] [place] [address] ACL James Huff JR Self - patient is the [...]
--- OUTSIDE RECORDS SUMMARY | 2024-10-06 08:55 | XMS_ITS | Encounter Summary ---
Author Organization Healthcare Address [address] [place] [address] Care Team Providers Care Line Clearance Foreman Name Role Phone Silas Horan MD Primary Care Provider [phone] Reason for Referral * Consultation (Routine) - Authorized Specialty Diagnoses / Procedures Referred By Destini warren Referred To Contact Orthopaedic Surgery Diagnoses Degenerative joint disease of pelvic region Alana Nair APRN [address] [address] Phone: tel: fax: [facility] & [address] [address] Phone: tel: fax: Referral ID Status Reason Start Date Expiration Date Visits Requested Visits Authorized [id number] Authorized Specialty Services Required 10/05/2023 04/05/2025 1 1 Encounter Details Date Type Department Care Team (Latest Contact Info) Description 10/05/2023 Community [facility] Community Practice [address] [place] [address] Alana Nair APRN [address] [place] [id number] Degenerative joint disease of pelvic region [...] thigh documented in this encounter Care Teams Line Clearance Foreman Relationship Specialty Start Date End Date Silas Horan MD [address] [place] [address] PCP - General 07/19/20 documented as of this encounter
--- OUTSIDE RECORDS SUMMARY | 2024-10-06 08:55 | XMS_ITS | Clinical Summary ---
Author Organization Healthcare Address [address] [place] [address] Care Team Providers Care Metal Bonder Name Role Phone Silas Horan MD Primary [...] Date Last Done Comments [facility]-Depression Screening 1950 [facility]-Infant/Child/Adol SDOH Screenings 1949 [facility]- SDOH Screenings 1967 [facility]-Adult SDOH Screenings 1967 [facility]-DTaP,Tdap,and Td Vaccine s (1 - Tdap) 02/22/1968 CT Colonography 1994 Colonoscopy 1994 FIT-DNA 1994 FIT 1994 FOBT 1994 Sigmoidoscopy 1994 [facility]-Colorectal Cancer Screening 1994 [facility]-Pneumococcal Vaccine: 50 + Years (1 of 1 - PCV) 1999 [facility]-Zoster Vaccines (1 of 2) 1999 [id number] Vaccine (1 - 2023- season) 2023 [facility]-RSV [...] age to complete this topic Insurance MEDICARE [facility] Care Teams Metal Bonder Relationship Specialty Start Date End Date Silas Horan MD [address] [place], [place] [address] PCP - General 07/19/20
[2024-10-06 09:14] VITALS: BMI 25.1
[2024-10-06 09:31] VITALS: BP 155/82; PULSE 46; RESP 18; TEMP 36.4; O2SAT 99
[2024-10-06 09:47] LABS: Anion Gap 7.1 mEq/L (5-15); Blood Urea Nitrogen 17 mg/dl (9-20); Calcium 9.6 mg/dl (8.4-10.2); Carbon Dioxide 32 mmol/L (22.0-30.0); Chloride 104 mmol/L (98-107); Creatinine Clearance Estimated 73 mL/min (50-200); Creatinine,Serum 1.10 mg/dl (0.66-1.25); Estimated Glomerular Filt Rate 65 ml/min (>60); GFR (African American) 79 ML/MIN (>60); Glucose 136 mg/dl (74-100); Potassium 4.1 mmoL/L (3.5-5.1); Sodium 139 mmol/L (136-145)
[2024-10-06 10:16] VITALS: BP 157/86; BP 188/98; PULSE 50; PULSE 52; RESP 16; O2SAT 96
[2024-10-06 10:22] VITALS: BP 121/77; PULSE 59; RESP 16; O2SAT 95
[2024-10-06] MEDS: IOPAMIDOL-370 (76%);100ML BOTTLE 75 ML IV (10:34)
[2024-10-06] MEDS: 0.9 % SODIUM CHLORIDE 50 ML VIAL IV (10:34)
[2024-10-06] MEDS: SODIUM CHLORIDE 0.9% 10ML SYR (RAD ONLY) 10 ML IV (10:34)
[2024-10-06 10:35] VITALS: BP 164/87; PULSE 66; RESP 16; O2SAT 98
== END 2024-10-06 23:59 | disposition home or self-care (01) ==
PROVIDERS: PCP Internal Medicine Adolescent Medicine; Visit Provider Nurse Practitioner Family
DX: I25.10 Atherosclerotic heart disease of native coronary artery without angina pectoris (principal); I10 Essential (primary) hypertension; R94.31 Abnormal electrocardiogram [ECG] [EKG]
CPT/HCPCS: 75574; 80048; Q9967

== ENCOUNTER 2024-11-01 10:00 | Outpatient (RCR) | payer MEDICARE, SELFPAY | END 2024-11-01 23:59 | disposition home or self-care (01) | LOC: PT 10:00 | PROVIDERS: PCP Internal Medicine Adolescent Medicine; Visit Provider Orthopaedic Surgery | DX: M16.12 Unilateral primary osteoarthritis, left hip (principal); M54.50 Low back pain, unspecified | CPT/HCPCS: 97110; 97140 ==

== ENCOUNTER 2024-12-05 10:00 | Outpatient (RCR) | payer MEDICARE, SELFPAY | END 2024-12-05 23:59 | disposition home or self-care (01) | LOC: PT 10:00 | PROVIDERS: PCP Internal Medicine Adolescent Medicine; Visit Provider Orthopaedic Surgery | DX: M16.12 Unilateral primary osteoarthritis, left hip (principal) | CPT/HCPCS: 97110 ==

== ENCOUNTER 2024-12-08 09:58 | Outpatient (RCR) | payer MEDICARE, SELFPAY | END 2024-12-08 23:59 | disposition home or self-care (01) | LOC: PT 09:58 | PROVIDERS: PCP Internal Medicine Adolescent Medicine; Visit Provider Orthopaedic Surgery | DX: M16.12 Unilateral primary osteoarthritis, left hip (principal); M54.50 Low back pain, unspecified | CPT/HCPCS: 97110; 97530 ==